=== PATIENT | male | born 1950 | race Caucasian/White ===

== ENCOUNTER 2018-03-17 07:30 | Inpatient (IN) | payer MEDICARE, OTHER ==
--- NOTE | 2018-03-07 16:10 | HP ---
HISTORY AND PHYSICAL: DATE OF ADMISSION/SURGERY: 03/17/18 DATE OF OFFICE VISIT: 03/07/18 SURGEON: Laurita Lucero MD * (DICTATED BY BEE HUFFMAN) PROCEDURE: Left total knee arthroplasty. CHIEF COMPLAINT: Left knee pain. HISTORY OF PRESENT ILLNESS: Mr. Hatch is a 67-year-old gentleman with end- stage osteoarthritis of the left knee. He has failed conservative treatment and elected to proceed with a left total knee arthroplasty. PAST MEDICAL HISTORY: High cholesterol, diabetes, sleep apnea, and melanoma. PAST SURGICAL HISTORY: Trigger finger release and left knee arthroscopy. CURRENT MEDICATIONS: Lipitor 40 mg at bedtime. ALLERGIES: No known drug allergies. FAMILY HISTORY: Coronary artery disease, colon cancer, and stroke. SOCIAL HISTORY: He is a 67-year-old gentleman, lives with his . He does not smoke, use drugs or alcohol. REVIEW OF SYSTEMS: A complete 14-point review of systems was reviewed with the patient. It is positive for diabetes, diet controlled. He denies history of DVT, PE, hepatitis, HIV, or anesthesia problems. PHYSICAL EXAMINATION GENERAL: He is well developed, well nourished, in no acute distress. VITAL SIGNS: He stands 5 feet 8 inches tall, weighs 214 pounds. His blood pressure is 122/70 and his heart rate is 64. HEENT: Normocephalic, atraumatic. NECK: Supple. No palpable lymph nodes. PULMONARY: The lungs are clear to auscultation bilaterally. CARDIO: Regular rate and rhythm. Strong S1, S2. ABDOMEN: Soft, nontender, nondistended. NEUROLOGICAL: He is alert and oriented x3. MUSCULOSKELETAL: Left lower extremity, the skin is intact. There are no open wounds or abrasions. He walked with antalgic-type gait, favoring his left knee. He has a varus deformity of his left knee with moderate effusion. Range of motion is 15 to 120 degrees of flexion. He has 2+ dorsalis pedis pulse. Intact sensation. His lower extremity muscle group strengths are intact at 5/5. ASSESSMENT AND PLAN: Mr. Hatch is a 67-year-old gentleman with end-stage osteoarthritis of the left knee. He has failed conservative treatment and elected to proceed with a left total knee arthroplasty. The surgery is scheduled for 03/17/[address] Lucero discussed the risks and benefits of the surgery at today's visit and all of his questions were answered. He will follow up with Dr. Lucero 2 weeks after the surgery. BEE HUFFMAN [id number]/[facility] #: [id number] TODD
[~2018-03-17 07:30] MED LIST: Buffered Lidocaine 0.9% SYRIN* 5 ML/SYR SYRINGE INTRADERM ONE; Dexamethasone IV* 4 MG/ML 1 ML (4 MG) IV SLOW PU ONE; Famotidine IV* 10 MG/ML 2 ML (20 mg) IV ONE; Tranexamic Acid 1,000 MG in NS 0.9% 50 ML* (outpatient use) IV SCH
[2018-03-17] MEDS ORDERED: Famotidine IV* 10 MG/ML 2 ML (20 mg) ONE (09:59)
[2018-03-17] MEDS ORDERED: ceFAZolin 2 GM PREMIX in ORs 2 GM/50 ML BAG IVPB ONE (09:59)
[2018-03-17] MEDS ORDERED: Dexamethasone IV* 4 MG/ML 1 ML (4 MG) ONE (09:59)
--- OUTSIDE RECORDS SUMMARY | 2018-03-17 10:06 | XMS REPORT | Continuity of Care Document ---
:1950 External Reference #:[id number] Author Name Reza Eden M.D. Address [address] [facility] [address] [place] [address] Care Team Providers Name Role Phone HCP/LW on file Primary Care Physician Unavailable Payers Type Date Identification Numbers Payment Provider Subscriber Effective: Policy Number: [id number] [facility] Silvio Hatch 2015 Services PayID: [id number] [address] [place] [address] Effective: 2016 Policy Number: [id number] [employer] Silvio Hatch PayID: [id number] [address] [place] [address] Advance Directives Description No Information Available Problems Date Description Provider Status Onset: 10/13/2004 Dysthymia Reza Eden M.D. Active Onset: 10/13/2004 Panic disorder without agoraphobia Reza Eden M.D. Active Onset: 10/13/2004 Family history of malignant neoplasm Reza Eden M.D. Active of gastrointestinal tract Onset: 01/12/2006 History of polyp of colon Reza Eden M.D. Active Onset: 01/12/2006 Pure hypercholesterolemia Reza Eden M.D. Active Onset: 01/12/2006 Obesity Reza Eden M.D. Active Onset: 07/21/2006 Migraine without aura, not refractory Reza Eden M.D. Active Onset: 03/03/2017 Type 2 diabetes mellitus Reza Eden M.D. Active Onset: 03/02/2016 Impaired fasting glycaemia Reza Eden M.D. 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 Allergies, Adverse Reactions, Alerts Description No Known Drug Allergies Medications Medication Date Status Form Strength Qnty SIG Indications Ordering Provider Shingrix 03/08/ Hx Suspension 50mcg/0.5 2unit administer 2 Z23 Meek, 2018 - Rec ML s doses as Reza 09/04/ Kylie dotson 2019 per cdc guidelines Meloxicam 02/17/ Active Tablets 15mg 30tab 1 tablet by Nic, 2018 s mouth daily MD Laurita Freestyle Lite 03/11/ Active Strips 100un use as Caroline Eden 2017 its directed for Reza measuring M.D. blood sugar up to 1x/day and as needed Atorvastatin 01/12/ Active Tablets 40mg 90tab 1 by mouth E78.00 Meek Calcium 2014 s every day Reza for high M.D. cholesterol Maxalt 10/13/ Active Tablets 10mg 9tabs 1 by mouth G43.009 Meek 2005 as needed Reza for M.D. migraines; may repeat after 2 hours Max 12/month Escitalopram 01/10/ Hx Tablets 5mg 45tab 1 by mouth 300.4 Meek Oxalate 2012 - s every day Reza 03/11/ for 1 month M.D. 2012 then 1/2 tablet daily for 1 month then stop it 300.01 Escitalopram 03/14/2012 - Hx Tablets 10mg 90tabs take 1 300.4 Silcoff, Oxalate 01/10/2013 tablet by Kylie Cobb mouth once daily 300.01 Atorvastatin 03/14/2012 - Hx Tablets 10mg 90tabs take 1 tablet 272.0 Silcoff, Calcium 01/12/2014 by mouth once Reza, daily for M.D. Cholesterol Lexapro 07/21/2006 - Hx Tabs 10mg 90tabs Take 1 Tablet 300.4 Silcoff, 03/14/2012 By Mouth Once Reza, Daily M.D. 300.01 Zithromax Z-Patrick 06/19/2006 - Hx Tablets 250mg 1Pack Use as 466.0 Ellis 06/24/2006 Directed Josefa Rhodesergan W/ 06/19/2006 - Hx Syrup 6.25mg;1 80z 2 TSP qid prn 466.0 Ellis Codeine 06/26/2006 0mg/5ML Cough Josefa FRAZIER Aleve 01/12/2006 - Hx Tablets 220mg 2 PO qd For Unknown 12/27/2008 Knee Pain Ibuprofen 03/20/2003 - Hx Tablets 600mg 60tabs 1 po tid klepack 06/24/2004 Clonazepam 03/20/2003 - Hx Tablets 0.5mg 60tabs 1tab 1 or 2 x 300.4 Sameer HTony 07/25/2003 qd prn for usman Shelby M.D. Lexapro 03/20/2003 - Hx Tablets 10mg 90tabs 1/2 - 1 po qd 300.4 Silcoff , 01/12/2006 to stabilize regan Cobb M.D. Lipitor 01/24/2003 - Hx Tablets 10mg 90tabs 1 qd for 272.0 Silcoff, 03/14/2012 cholesterol Kylie Cobb Aspirin 01/24/2003 - Hx Chewtabs 81mg 1 po qd To Sameer Harp 02/17/2018 Prevent Ashley Shelby M.D. Multivitamins 01/24/2003 - Hx Tablets 30tabs 1 po qd Sameer Harp 02/25/2015 Kylie Shelby Pravachol 01/24/2003 - Hx Tablets 20mg 90tabs 1 po hs to Sameer Harp 04/04/2003 lowe blood mercedes Shelby M.D. Maxalt IC DESIGN MANAGER 01/12/2003 - Hx Tablets 10mg 16tabs 1 under tongue Sameer H. 10/13/2004 as needed for lilia Shelby, august Kylie repeat in 2 hours, max 3 pills in 24 hours B12 - Hx Unknown 01/06/2012 Mystic 3 - Hx Unknown 01/10/2013 Immunizations CPT Code Status Date Vaccine Lot # [id number] Given 02/21/2018 Influenza Virus Vaccine, Quadrivalent, Split, [id number] Preservative Free 27470 Given 03/03/2017 Pneumococcal Immunization [id number] 54513 Given 03/03/2017 Influenza Vaccine Split Virus Preservative Free Im [id number] Use 11354 Given 03/02/2016 Influenza Virus Vaccine, Quadrivalent, Split, [id number] Preservative Free 16701 Given 03/02/2016 Prevnar 13 [id number] 21355 Given 02/25/2015 Influenza Virus Vaccine, Quadrivalent, Split, [id number] Preservative Free 63572 Given 01/25/2014 Influenza Virus Vaccine, Quadrivalent, Split, Preservative Free 56128 Given 01/10/2013 Zostavax [id number] 77649 Given 01/10/2013 Flu, Split Virus 3Yrs [id number] 65715 Given 01/06/2012 Flu, Split Virus 3Yrs [id number] 56689 Given 01/06/2011 Adacel or Boostrix, TDaP [id number] 90432 Given 01/06/2011 Flu, Split Virus 3Yrs [id number] 75832 Given 12/28/2007 Flu, Split Virus 3Yrs [id number] 00589 Given 10/13/2004 Td Immunization 89146 Given 01/24/2003 Flu, Split Virus 3Yrs [id number] Refused 01/06/2012 Zostavax Vital Signs Date Vital Result Comment 03/08/2018 9:04am BP Systolic 124 mmHg BP Diastolic 80 mmHg Heart Rate 56 /min reg Respiratory Rate 12 /min not laboured O2 % BldC Oximetry 95 % Body Temperature 97.7 F Height 67.50 inches 5'7.50" Weight 214.00 lb BMI (Body Mass Index) 33.0 kg/m2 03/03/2017 9:00am BP Systolic 125 mmHg BP Diastolic 80 mmHg BP Systolic Recheck 130 mmHg R arm sitting BP Diastolic Recheck 78 mmHg R arm sitting Heart Rate 72 /min reg Respiratory Rate 12 /min not laboured Height 67.5 inches 5'7.50" Weight 210.00 lb BMI (Body Mass Index) 32.4 kg/m2 03/02/2016 10:01am BP Systolic 154 mmHg BP Diastolic 70 mmHg BP Systolic Recheck 124 mmHg R arm sitting BP Diastolic Recheck 74 mmHg R arm sitting Heart Rate 70 /min reg Respiratory Rate 14 /min not laboured Height 67.5 inches 5'7.50" Weight 222.00 lb BMI (Body Mass Index) 34.3 kg/m2 02/25/2015 3:04pm BP Systolic 128 mmHg BP Diastolic 70 mmHg Heart Rate 68 /min reg Respiratory Rate 14 /min not laboured Height 67 inches 5'7" Weight 226.00 lb BMI (Body Mass Index) 35.4 kg/m2 01/12/2014 10:09am BP Systolic 118 mmHg BP Diastolic 72 mmHg Heart Rate 76 /min reg Respiratory Rate 12 /min not laboured Height 67.25 inches 5'7.25" Weight 235.00 lb BMI (Body Mass Index) 36.5 kg/m2 04/12/2013 9:42am BP Systolic 122 mmHg BP Diastolic 76 mmHg Weight 240.00 lb 01/10/2013 9:14am BP Systolic 124 mmHg BP Diastolic 78 mmHg Heart Rate 72 /min reg Respiratory Rate 12 /min not laboured Height 67.75 inches 5'7.75" Weight 233.00 lb BMI (Body Mass Index) 35.7 kg/m2 01/06/2012 2:27pm BP Systolic 134 mmHg BP Diastolic 88 mmHg BP Systolic Recheck 128 mmHg R arm sitting BP Diastolic Recheck 84 mmHg R arm sitting Heart Rate 74 /min reg Respiratory Rate 12 /min not laboured Height 67.50 inches 5'7.50" Weight 226.00 lb BMI (Body Mass Index) 34.9 kg/m2 01/06/2011 10:35am BP Systolic 100 mmHg BP Diastolic 68 mmHg Height 67.50 inches 5'7.50" Weight 220.00 lb BMI (Body Mass Index) 33.9 kg/m2 Last Menstrual Period 0 12/30/2009 9:56am BP Systolic 122 mmHg BP Diastolic 80 mmHg Heart Rate 72 /min reg Respiratory Rate 14 /min not laboured Height 68 inches 5'8" Weight 230.00 lb BMI (Body Mass Index) 35.0 kg/m2 12/28/2008 9:54am BP Systolic 108 mmHg BP Diastolic 70 mmHg Height 67.50 inches 5'7.50" Weight 223.00 lb BMI (Body Mass Index) 34.4 kg/m2 Last Menstrual Period 0 12/28/2007 2:28pm BP Systolic 124 mmHg BP Diastolic 62 mmHg Height 68 inches 5'8" Weight 230.00 lb BMI (Body Mass Index) 35.0 kg/m2 12/21/2006 8:53am BP Systolic 120 mmHg BP Diastolic 84 mmHg Height 68 inches 5'8" Weight 240.00 lb BMI (Body Mass Index) 36.5 kg/m2 09/20/2006 3:56pm BP Systolic 124 mmHg BP Diastolic 76 mmHg Height 68.5 inches 5'8.50" Weight 239.00 lb BMI (Body Mass Index) 35.8 kg/m2 07/21/2006 11:12am BP Systolic 130 mmHg BP Diastolic 80 mmHg Height 68.5 inches 5'8.50" Weight 240.00 lb BMI (Body Mass Index) 36.0 kg/m2 06/19/2006 10:45am BP Systolic 124 mmHg BP Diastolic 76 mmHg Body Temperature 98.3 F Height 68.5 inches 5'8.50" Weight 245.00 lb BMI (Body Mass Index) 36.7 kg/m2 01/12/2006 3:42pm BP Systolic 130 mmHg BP Diastolic 84 mmHg Height 68.5 inches 5'8.50" Weight 240.00 lb BMI (Body Mass Index) 36.0 kg/m2 10/13/2004 10:07am BP Systolic 126 mmHg BP Diastolic 76 mmHg Height 68.5 inches 5'8.50" Weight 233.00 lb BMI (Body Mass Index) 34.9 kg/m2 06/24/2004 4:37pm BP Systolic 120 mmHg BP Diastolic 80 mmHg Height 67.9 inches 5'7.90" Weight 235.00 lb BMI (Body Mass Index) 35.8 kg/m2 10/25/2003 8:50am Height 67.9 inches 5'7.90" Weight 224.00 lb BMI (Body Mass Index) 34.2 kg/m2 07/25/2003 2:44pm BP Systolic 118 mmHg BP Diastolic 78 mmHg Weight 235.00 lb 03/20/2003 4:55pm BP Systolic 118 mmHg BP Diastolic 70 mmHg 01/24/2003 2:17pm Weight 221.00 lb Last Menstrual Period 0 Results Test Date Facility Test Result H/L Range Note Laboratory test 03/08/2018 In House Hemoglobin A1c 6.8 finding CBC Auto Diff 03/07/2018 [facility] White Blood 5.9 10^3/uL N 3.5- 10.8 1 [phone] Count Red Blood Count 5.68 10^6/uL High 4.00-5.40 Hemoglobin 15.4 g/dL N 14.0-18.0 Hematocrit 46 % N 42-52 Mean Corpuscular Volume 81 fL N 80-94 Mean Corpuscular Hemoglobin 27 pg N 27-31 Mean Corpuscular HGB Conc 33 g/dL N 31-36 Red Cell Distribution Width 16 % High 10.5-15 Platelet Count 160 10^3/uL N 150-450 Mean Platelet Volume 7.9 fL N 7.4-10.4 Abs Neutrophils 3.8 10^3/uL N 1.5-7.7 Abs Lymphocytes 1.5 10^3/uL N 1.0-4.8 Abs Monocytes 0.4 10^3/uL N 0-0.8 Abs Eosinophils 0.2 10^3/uL N 0-0.6 Abs Basophils 0 10^3/uL N 0-0.2 Abs Nucleated RBC 0 10^3/uL Granulocyte % 64.5 % Lymphocyte % 24.8 % Monocyte % 7.1 % Eosinophil % 3.0 % Basophil % 0.6 % Nucleated Red Blood Cells % 0.1 Urinalysis Profile 03/07/2018 [facility] Urine Color Yellow [phone] Urine Appearance Clear Urine Specific [place] 1.027 N 1.010-1.030 Urine pH 5.0 N 5-9 Urine Urobilinogen Negative Negative Urine Ketones Negative Negative Urine Protein Negative Negative Urine Leukocytes Negative Negative Urine Blood Negative Negative Urine Nitrite Negative Negative Urine Bilirubin Negative Negative Urine Glucose Negative Negative Inr/Protime 03/07/2018 [facility] Inr 0.98 N 0.77-1.02 [phone] Laboratory test 03/07/2018 [facility] Partial 32.2 seconds N 26.0- 36.3 2 finding [phone] Thrombo Time PTT Urine Culture And 03/07/2018 [facility] Urine Culture SEE RESULT 3 Sensitivities [phone] BELOW Type & Screen 03/07/2018 [facility] Patient Blood A Positive [phone] Type Antibody Screen NEGATIVE Comp Metabolic Panel 03/07/2018 [facility] Sodium 140 mmol/L N 135- 145 [phone] Potassium 4.3 mmol/L N 3.5-5.0 Chloride 108 mmol/L N 101-111 Co2 Carbon Dioxide 25 mmol/L N 22-32 Anion Gap 7 mmol/L N 2-11 Glucose 137 mg/dL High 70-100 Blood Urea Nitrogen 22 mg/dL N 6-24 Creatinine 0.69 mg/dL N 0.67-1.17 BUN/Creatinine Ratio 31.9 High 8-20 Calcium 9.4 mg/dL N 8.6-10.3 Total Protein 6.5 g/dL N 6.4-8.9 Albumin 4.2 g/dL N 3.2-5.2 Globulin 2.3 g/dL N 2-4 Albumin/Globulin Ratio 1.8 N 1-3 Total Bilirubin 0.80 mg/dL N 0.2-1.0 Alkaline Phosphatase 82 U/L N 34-104 Alt 23 U/L N 7-52 Ast 16 U/L N 13-39 Egfr Non- 114.4 >60 Egfr 138.4 >60 4 Basic Metabolic Panel 03/10/2017 [facility] Sodium 138 mmol/L N 133- 145 [phone] Potassium 4.3 mmol/L N 3.5-5.0 Chloride 106 mmol/L N 101-111 Co2 Carbon Dioxide 26 mmol/L N 22-32 Anion Gap 6 mmol/L N 2-11 Glucose 94 mg/dL N 70-100 Blood Urea Nitrogen 12 mg/dL N 6-24 Creatinine 0.67 mg/dL N 0.67-1.17 BUN/Creatinine Ratio 17.9 N 8-20 Calcium 8.8 mg/dL N 8.6-10.3 Egfr Non- 118.7 >60 Egfr 152.6 >60 5 Urine Microalbumin 03/10/2017 [facility] Ur Microalbumin < 15.0 mg/L Random [phone] (mg/L) Urine Creatinine 184.24 mg/dL Urine Microalbumin/Creatinine TNP ug/mg <31 6 Lipid Profile (Trig/Chol/HDL) 03/10/2017 [facility] Triglycerides 59 mg /dL 7 [phone] Cholesterol 134 mg/dL 8 HDL Cholesterol 53.3 mg/dL 9 LDL Cholesterol 69 mg/dL 10 Laboratory test 03/10/2017 [facility] Alt 30 U/L N 7-52 11 finding [phone] Laboratory test 03/03/2017 In House Hemoglobin A1c 6.5 finding Laboratory test 06/05/2016 [facility] Hemoglobin A1c 6.7 % High Less than 12 finding [phone] (Glyco HGB) 6.0 Laboratory test 03/02/2016 In House Hemoglobin A1c 7.0 finding Urine Micro 03/02/2016 In House Ua WBC - 13 Inhouse Ua RBC - Ua Casts - Ua Epi - Ua Other - Ua Glucose - Ua Bilirubin - Ua Ketones - Ua Specific [place] 1.015 Ua Blood - Ua PH 5.0 Ua Protein - Ua Urobilinogen - Ua Nitrite - Ua Leukocytes - Laboratory test finding 02/14/2016 [facility] Glucose 100 mg/dL N 70- 100 [phone] Alt (SGPT) 19 U/L N 7-52 Lipid Profile (Trig/Chol/HDL) 02/14/2016 [facility] Triglycerides 55 mg /dL N 14 [phone] Cholesterol 121 mg/dL N 15 HDL Cholesterol 45.2 mg/dL N 16 LDL Cholesterol 65 mg/dL N 17 Laboratory test 03/25/2015 [facility] Surgical Pathology SEE RESULT 18 finding [phone] BELOW Lipid Profile 03/11/2015 [facility] Triglycerides 72 mg/dL N 19 (Trig/Chol/HDL) [phone] Cholesterol 105 mg/dL N 20 HDL Cholesterol 40.8 mg/dL N 21 LDL Cholesterol 50 mg/dL N 22 Laboratory test finding 03/11/2015 [facility] Alt (SGPT) 20 U/L N 7- 52 23 [phone] Glucose 116 mg/dL High 70-100 24 Lipid Profile 03/19/2014 [facility] Triglycerides 82 mg/dL N 25, 26 (Trig/Chol/HDL) [phone] Cholesterol 109 mg/dL N 27 HDL Cholesterol 42.1 mg/dL N 28 LDL Cholesterol 51 mg/dL N 29 Laboratory test finding 03/19/2014 [facility] Alt 23 U/L N 7-52 30 [phone] Lipid Profile 12/30/2012 [facility] Triglycerides 83 mg/dL 40-200 (Trig/Chol/HDL) [phone] Cholesterol 150 mg/dL Less than 200 HDL Cholesterol 38 mg/dL Low 40-60 31 Cholesterol/HDL Ratio 4.0 Average 1-4.44 LDL Cholesterol 95.4 Less Than 100 32 Laboratory test finding 12/30/2012 [facility] Alt 21 U/L 14-54 33 [phone] Lipid Profile 12/17/2011 [facility] Triglyceride 49 mg/dL 40-200 (Trig/Chol/HDL) [phone] Cholesterol 129 mg/dL Less Than 200 34 High Density Lipoprotein 38 mg/dL Low 40-60 35 Cholesterol/HDL Ratio 3.39 AVERAGE 1-4.97 Low Density Lipoprotein 81 mg/dL Less Than 100 36 Laboratory test finding 12/17/2011 [facility] Alt (SGPT) 29 U/L 17- 63 [phone] Lipid Profile 12/19/2010 [facility] Triglyceride 63 mg/dL 40-200 (Trig/Chol/HDL) [phone] Cholesterol 136 mg/dL Less Than 200 37 High Density Lipoprotein 40 mg/dL 40-60 38 Cholesterol/HDL Ratio 3.40 AVERAGE 1-4.97 Low Density Lipoprotein 83 mg/dL Less Than 100 39 Laboratory test 12/19/2010 [facility] Alt (SGPT) 22 U/L 17-63 finding [phone] CBC With Electronic 01/14/2010 [facility] White Blood 6.8 CUMM 4.8- 10.8 Diff [phone] Count Red Cell Count 5.61 CUMM 4.6-6.2 Hemoglobin 15.5 g/dL 14.0-18.0 Hematocrit 45 % 42-52 Mean Corpuscular Volume 80 um3 80-94 Mean Corpuscular Hemoglob 28 pg 27-31 Mean Corpuscular HGB Cone 35 g/dL 32-36 Redcell Distribution WDTH 15 % 10.5-15 Platelet Count 205 CUMM 150-450 Mean Platelet Volume 7.0 um3 Low 7.4-10.4 Gran % 61.9 % 38-83 Lymph % 28.3 % 25-47 Mononuclear % 6.8 % 1-9 Eosinophil % 2.5 % 0-6 Basophil % 0.5 % 0-2 Abs Lymphs 1.9 1.0-4.8 Abs Mononuclear 0.5 0-0.8 Absolute Neutrophil Count 4.2 1.5-7.7 Abs Eosinophils 0.2 0-0.6 Abs Basophils 0 0-0.2 Laboratory test finding 01/14/2010 [facility] TSH 1.47 MIU/ML 0.34- 5.60 [phone] Urine Micro Inhouse 12/30/2009 In House Ua WBC - Ua RBC - Ua Casts - Ua Epi - Ua Other - Ua Glucose - Ua Bilirubin - Ua Ketones - Ua Specific [place] 1.025 Ua Blood - Ua PH 5.0 Ua Protein - Ua Urobilinogen - Ua Nitrite - Ua Leukocytes - Laboratory test finding 12/03/2009 [facility] Alt (SGPT) 26 U/L 05- 39 [phone] Lipid Profile 12/03/2009 [facility] Triglyceride 48 mg/dL 40-200 (Trig/Chol/HDL) [phone] Cholesterol 137 mg/dL Less Than 200 40 High Density Lipoprotein 33 mg/dL Low 40-60 41 Cholesterol/HDL Ratio 4.15 AVERAGE 1-4.97 Low Density Lipoprotein 94 mg/dL Less Than 100 42 Lipid Profile 12/06/2008 [facility] Triglyceride 53 mg/dL 40-200 (Trig/Chol/HDL) [phone] Cholesterol 137 mg/dL Less Than 200 43 High Density Lipoprotein 37 mg/dL Low 40-60 44 Cholesterol/HDL Ratio 3.70 AVERAGE 1-4.97 Low Density Lipoprotein 89 mg/dL Less Than 100 45 Laboratory test finding 12/06/2008 [facility] Alt (SGPT) 23 U/L 17- 59 [phone] Laboratory test finding 12/01/2007 [facility] Alt (SGPT) 23 U/L 17- 68 [phone] Lipid Profile 12/01/2007 [facility] Triglyceride 90 mg/dL 40-200 (Trig/Chol/HDL) [phone] Cholesterol 148 mg/dL Less Than 200 46 High Density Lipoprotein 37 mg/dL Low 40-60 47 Cholesterol/HDL Ratio 4.00 AVERAGE 1-4.97 Low Density Lipoprotein 93 mg/dL Less Than 100 48 Lipid Profile 12/12/2006 [facility] Cholesterol/HDL 4.25 1-4.97 (Trig/Chol/HDL) [phone] Ratio AVERAGE Cholesterol 136 mg/dL Less Than 200 49 Triglyceride 90 mg/dL 40-200 High Density Lipoprotein 32 mg/dL Low 40-60 50 Low Density Lipoprotein 86 mg/dL Less Than 100 51 Laboratory test finding 12/12/2006 [facility] Alt (SGPT) 26 U/L 17- 55 [phone] Laboratory test finding 12/04/2005 [facility] Alt (SGPT) 28 U/L 17- 63 52 [phone] Glucose 87 mg/dL 70-105 Lipid Profile 12/04/2005 [facility] Cholesterol 160 mg/dL Less Than 53 (Trig/Chol/HDL) [phone] 200 Triglyceride 106 mg/dL 40-200 High Density Lipoprotein 43 mg/dL 40-60 Low Density Lipoprotein 96 mg/dL Less Than 100 54 Cholesterol/HDL Ratio 3.72 AVERAGE 1-4.97 Laboratory test finding 10/07/2004 [facility] Alt (SGPT) 28 U/L 17- 63 [phone] Glucose 91 mg/dL 70-105 Lipid Profile 10/07/2004 [facility] Cholesterol 157 mg/dL Less Than 55 (Trig/Chol/HDL) [phone] 200 Triglyceride 110 mg/dL 40-200 High Density Lipoprotein 39 mg/dL Low 40-60 56 Low Density Lipoprotein 96 mg/dL Less Than 100 57 Cholesterol/HDL Ratio 4.03 AVERAGE 1-4.97 Laboratory test finding 10/25/2003 [facility] PSA Screening 2.2 NG/ML 0-4 58 [phone] TSH 1.22 MIU/ML 0.34-5.60 Comp Metabolic Panel 10/25/2003 [facility] Anion Gap 6.0 mmol/L 2- 11 59 [phone] Albumin/Globulin Ratio 1.3 1-3 Albumin 3.8 GM/DL 3.6-5.4 Alkaline Phosphatase 91 U/L 39-117 Alt (SGPT) 36 U/L 17-63 Ast (Sgot) 21 U/L 12-42 BUN 13 mg/dL 6-24 Calcium 9.6 mg/dL 8.7-10.2 Chloride 106 mmol/L 101-111 Co2 (Carbon Dioxide) 28.0 mmol/L 22-32 Creatinine 0.9 mg/dL 0.5-1.4 Globulin 3.0 GM/DL 2-4 Glucose 87 mg/dL 70-105 Potassium 4.7 mmol/L 3.5-5.0 Sodium 140 mmol/L 135-145 Bilirubin Total 0.9 mg/dL 0.4-1.5 Total Protein 6.8 GM/DL 6.2-8.1 BUN/Creatinine Ratio 14.4 8-20 Lipid Profile 10/25/2003 [facility] Cholesterol 142 mg/dL Less Than 60 (Trig/Chol/HDL) [phone] 200 Triglyceride 61 mg/dL 40-200 High Density Lipoprotein 38 mg/dL Low 40-60 61 Low Density Lipoprotein 92 mg/dL Less Than 100 62 Cholesterol/HDL Ratio 3.74 AVERAGE 1-4.97 CBC With Electronic 10/25/2003 [facility] White Blood 5.7 CUMM 4.8- 10.8 Diff [phone] Count Abs Basophils 0 0-0.2 Abs Eosinophils 0.1 0-0.6 Abs Grans 3.7 1.5-7.7 Abs Lymphs 1.4 1.0-4.8 Abs Mononuclear 0.4 0-0.8 Basophil % 0.8 % 0-2 Hematocrit 47 % 42-52 Hemoglobin 16.1 g/dL 14.0-18.0 Eosinophil % 2.4 % 0-6 Gran % 65.9 % 38-83 Lymph % 24.1 % 20-45 Mean Corpuscular HGB Cone 34 g/dL 32-36 Mean Corpuscular Hemoglob 28 pg 27-31 Mean Corpuscular Volume 80 um3 80-94 Mean Platelet Volume 8.3 um3 7.4-10.4 Mononuclear % 6.8 % 1-9 Platelet Count 196 CUMM 150-450 Red Cell Count 5.85 CUMM 4.6-6.2 Redcell Distribution WDTH 15 % 10.5-15 1 03/17 2 03/17 3 SEE RESULT BELOW Name: SILVIO HATCH : [address]: Laurita Lucero MD Acct: [id number] Unit: [id number] AGE: 67 Location: PAT Re03/07/18 SEX: M Status: REG REF SPEC: [id number] MARKEL: 03/07/18-[address]: Laurita Lucero MD REQ: [id number] RECD: 03/07/18 STATUS: RIA MORRISON DR: Reza Eden MD _ SOURCE: URINE SPDESC: ORDERED: Urine Culture COMMENTS: 03/17 QUERIES: Urine Source: Clean Catch Procedure Result Reported Site Urine Culture Final 03/08/18- 1300 ML No Growth (<1,000 CFU/mL) * ML - Main Lab . END OF REPORT DEPARTMENT OF PATHOLOGY, [address] [place] [address] Tito Gutiérrez M.D. Director [facility] # [id number] 4 Because ethnic data is not always readily available, this report includes an eGFR for both -Americans and non- Americans. The National Kidney Disease Education Program (NKDEP) does not endorse the use of the MDRD equation for patients that are not between the ages of 18 and 70, are , have extremes of body size, muscle mass, or nutritional status, or are non- or non-. According to the National Kidney Foundation, irrespective of diagnosis, the stage of the disease is based on the level of kidney function: Stage Description GFR(mL/min/1.73 m(2)) 1 Kidney damage with normal or decreased GFR 90 2 Kidney damage with mild decrease in GFR 60-89 3 Moderate decrease in GFR 30-59 4 Severe decrease in GFR 15-29 5 Kidney failure <15 (or dialysis) 5 Because ethnic data is not always readily available, this report includes an eGFR for both -Americans and non- Americans. The National Kidney Disease Education Program (NKDEP) does not endorse the use of the MDRD equation for patients that are not between the ages of 18 and 70, are , have extremes of body size, muscle mass, or nutritional status, or are non- or non-. According to the National Kidney Foundation, irrespective of diagnosis, the stage of the disease is based on the level of kidney function: Stage Description GFR(mL/min/1.73 m(2)) 1 Kidney damage with normal or decreased GFR 90 2 Kidney damage with mild decrease in GFR 60-89 3 Moderate decrease in GFR 30-59 4 Severe decrease in GFR 15-29 5 Kidney failure <15 (or dialysis) 6 Unable to calculate due to low microalbumin 7 Desirable: <150 Borderline High: 150-199 High: 200-499 Very High: >500 8 Desirable: <200 Borderline High: 200-239 High: >239 9 Low: <40 Desirable: 40-60 High: >60 10 Desirable: <100 Near Optimal: 100-129 Borderline High: 130-159 High: 160-189 Very High: >189 11 FASTING 12 HOUR 12 Therapeutic target for the treatment of diabetes Mellitus patients is <7% HBA1C, and in selective patients <6.0%.Please refer to [employer] Diabetic care guidelines for further information. 13 void, clear, dark yellow 14 Desirable <150 Borderline high 150-199 High 200-499 Very High >500 15 Desirable <200 Borderline high 200-239 High >239 16 Low <40 Desirable: 40-60 High: >60 17 Desirable: <100 mg/dL Near Optimal: 100-129 mg/dL Borderline High: 130-159 mg/dL High: 160-189 mg/dL Very High: >189 mg/dL 18 SEE RESULT BELOW Name: SILVIO HATCH : [address]: Shantanu Hayes MD Acct: [id number] Unit: [id number] AGE: 64 Location: [facility] Re03/25/15 SEX: M Status: REG REF SPEC: [id number] MARKEL: 03/25/15- SUBM DR: Shantanu Hayes MD REQ: [id number] RECD: 03/25/151609 STATUS: DARY MORRISON DR: Reza Eden MD _ ORDERED: LEVEL IV FINAL DIAGNOSIS Colon, mid transverse, biopsy: -- Tubular adenoma. -- No high grade dysplasia or malignancy. CLINICAL HISTORY Positive family history; usual bowel habit - every day with no blood POST-OPERATIVE DIAGNOSIS Colonoscopy to cecum with ease, poor to fair prep - terminal ileum normal. Diverticulosis, transverse polyps; family history; 5 years GROSS DESCRIPTION The specimen is received in formalin labeled, Biopsy Mid Transverse Colon Polyp, and consists of a 0.7 x 0.4 x 0.2 cm aggregate of ron irregular soft tissue fragments, which is submitted entirely in one cassette. Signed (signature on file) Lata Atkins MD 1153 END OF REPORT * ML=Testing performed at Main Lab DEPARTMENT OF PATHOLOGY, [address] [place] [address] Tito Gutiérrez M.D. Director [facility] # [id number] 19 Desirable <150 Borderline high 150-199 High 200-499 Very High >500 20 Desirable <200 Borderline high 200-239 High >239 21 Low <40 Desirable: 40-60 High: >60 22 Desirable: <100 mg/dL Near Optimal: 100-129 mg/dL Borderline High: 130-159 mg/dL High: 160-189 mg/dL Very High: >189 mg/dL 23 FASTING 24 FASTING 25 FASTING 12 HOUR 26 Desirable <150 Borderline high 150-199 High 200-499 Very High >500 27 Desirable <200 Borderline high 200-239 High >239 28 Low <40 Desirable: 40-60 High: >60 29 Desirable <100 Near Optimal 100-129 Borderline high 130-159 High 160-189 Very High >189 30 FASTING 12 HOUR 31 HDL Interpretation: Undesirable: High Risk: Less than 40 mg/dL Desirable: Low Risk: Greater than 60 mg/dL 32 LDL Interpretation: Low Risk Optimal Level: LDL Less than 100 mg/dL Near or Above Optimal: LDL 100-129 mg/dL Borderline High Risk: LDL 130-159 mg/dL High Risk: LDL 160-189 mg/dL Very High Risk: LDL Greater than 189 mg/dL 33 FASTING 12 HOUR 34 CHOLESTEROL INTERPRETATION: Desirable: Less than 200 MG/DL Borderline-High Risk: 200-239 MG/DL High-Risk: 240 MG/DL and over 35 HDL INTERPRETATION: Undesirable: High Risk: Less than 40 MG/DL Desirable: Low Risk: Greater than 60 MG/DL 36 LDL INTERPRETATION: Low Risk Optimal Level: LDL Less than 100 MG/DL Near or Above Optimal: LDL 100-129 MG/DL Borderline High Risk: LDL 130-159 MG/DL High Risk: LDL 160-189 MG/DL Very High Risk: LDL Greater than 189 MG/DL 37 CHOLESTEROL INTERPRETATION: Desirable: Less than 200 MG/DL Borderline-High Risk: 200-239 MG/DL High-Risk: 240 MG/DL and over 38 HDL INTERPRETATION: Undesirable: High Risk: Less than 40 MG/DL Desirable: Low Risk: Greater than 60 MG/DL 39 LDL INTERPRETATION: Low Risk Optimal Level: LDL Less than 100 MG/DL Near or Above Optimal: LDL 100-129 MG/DL Borderline High Risk: LDL 130-159 MG/DL High Risk: LDL 160-189 MG/DL Very High Risk: LDL Greater than 189 MG/DL 40 CHOLESTEROL INTERPRETATION: Desirable: Less than 200 MG/DL Borderline-High Risk: 200-239 MG/DL High-Risk: 240 MG/DL and over 41 HDL INTERPRETATION: Undesirable: High Risk: Less than 40 MG/DL Desirable: Low Risk: Greater than 60 MG/DL 42 LDL INTERPRETATION: Low Risk Optimal Level: LDL Less than 100 MG/DL Near or Above Optimal: LDL 100-129 MG/DL Borderline High Risk: LDL 130-159 MG/DL High Risk: LDL 160-189 MG/DL Very High Risk: LDL Greater than 189 MG/DL 43 CHOLESTEROL INTERPRETATION: Desirable: Less than 200 MG/DL Borderline-High Risk: 200-239 MG/DL High-Risk: 240 MG/DL and over 44 HDL INTERPRETATION: Undesirable: High Risk: Less than 40 MG/DL Desirable: Low Risk: Greater than 60 MG/DL 45 LDL INTERPRETATION: Low Risk Optimal Level: LDL Less than 100 MG/DL Near or Above Optimal: LDL 100-129 MG/DL Borderline High Risk: LDL 130-159 MG/DL High Risk: LDL 160-189 MG/DL Very High Risk: LDL Greater than 189 MG/DL 46 CHOLESTEROL INTERPRETATION: Desirable: Less than 200 MG/DL Borderline-High Risk: 200-239 MG/DL High-Risk: 240 MG/DL and over 47 HDL INTERPRETATION: Undesirable: High Risk: Less than 40 MG/DL Desirable: Low Risk: Greater than 60 MG/DL 48 LDL INTERPRETATION: Low Risk Optimal Level: LDL Less than 100 MG/DL Near or Above Optimal: LDL 100-129 MG/DL Borderline High Risk: LDL 130-159 MG/DL High Risk: LDL 160-189 MG/DL Very High Risk: LDL Greater than 189 MG/DL 49 Classification: Desirable . 50 Classification: Low . 51 CALCULATED LDL APPROXIMATES THE VALUE OF A DIRECT LDL MEASUREMENT. Classification: Optimal Level . 52 FASTING 53 Classification: Desirable . 54 CALCULATED LDL APPROXIMATES THE VALUE OF A DIRECT LDL MEASUREMENT. Classification: Optimal Level . 55 Classification: Desirable . 56 Classification: Low . 57 CALCULATED LDL APPROXIMATES THE VALUE OF A DIRECT LDL MEASUREMENT. Classification: Optimal Level . 58 * SERUM LEVELS OF PSA MEASURED USING THE ROCIO Fluid-1 ACCESS HYBRITECH IMMUNOASSAY SHOULD NOT BE INTERPRETED ABSOLUTE EVIDENCE OF THE PRESENCE OR ABSENCE OF DISEASE. THE PSA VALUE SHOULD BE USED IN CONJUNCTION WITH OTHER PERTINENT CLINICAL DIAGNOSTIC PROCEDURES. 59 Anion gap measurement may be of limited value in the presence of any alkalosis, especially in a combined acid base disorder. . 60 Classification: Desirable . 61 Classification: Low . 62 CALCULATED LDL APPROXIMATES THE VALUE OF A DIRECT LDL MEASUREMENT. Classification: Optimal Level . Procedures Date Code Description Status 03/08/2018 602578048 Diabetic Foot Exam Completed 04/01/2017 311560030 Diabetic Retinal Eye Exam Completed 03/05/2015 [id number] Colonoscopy Completed Encounters Type Date Location Provider Dx Diagnosis Office Visit 03/08/2018 Main Office Reza Eden, Z01.818 Encounter for other 8:55a M.D. preprocedural examination Z00.00 Encntr for general adult medical exam w/o abnormal findings E11.9 Type 2 diabetes mellitus without complications M25.562 Pain in left knee M17.0 Bilateral primary osteoarthritis of knee E78.00 Pure hypercholesterolemia, unspecified Z23 Encounter for immunization Office Visit 02/25/2015 2:00p Main Office Reza Eden, F41.0 Panic disorder M.D. without agoraphobia Z23 Encounter for immunization Z00.00 Encntr for general adult medical exam w/o abnormal findings Z41.8 Encntr for oth proc for purpose oth than remedy [facility] Office Visit 01/12/2014 9:45a Main Office Reza Eden, V70.0 Examination General M.D. Medical Routine AT Health Care Facility 272.0 Hypercholesterolemia Pure 346.10 Migraine Common W/O Intractable W/O Status Migrainosus 786.2 Cough Office Visit 04/12/2013 9:30a Main Office Reza Eden, 300.01 Panic Disorder W/O M.D. Agoraphobia 300.4 Dysthymic Disorder Office Visit 01/10/2013 8:55a Main Office Reza Eden, V70.0 Examination General M.D. Medical Routine AT Health Care Facility 272.0 Hypercholesterolemia Pure 346.10 Migraine Common W/O Intractable W/O Status Migrainosus 300.01 Panic Disorder W/O Agoraphobia 300.4 Dysthymic Disorder V04.81 Need For Prophylactic Vaccination & Inoculation/Influenza V05.8 Single Disease Spec Other Vaccination & Inoculation V07.2 Prophylactic Immunotherapy Office Visit 01/06/2012 2:00p Main Office Reza Eden, V70.0 Examination General M.D. Medical Routine AT Health Care Facility 272.0 Hypercholesterolemia Pure 346.10 Migraine Common W/O Intractable W/O Status Migrainosus 300.01 Panic Disorder W/O Agoraphobia 300.4 Dysthymic Disorder V76.44 Screening For Malig Cristóbal Prostate V65.49 Counseling Other Spec V04.81 Need For Prophylactic Vaccination & Inoculation/Influenza V07.2 Prophylactic Immunotherapy Office 01/06/2011 Main [place], V06.1 Abypoavfrh-Vplyunt-Gjotkugn Visit 10:30a Office Kylie Cobb Combined (DTaP) 300.4 Dysthymic Disorder 300.01 Panic Disorder W/O Agoraphobia 346.10 Migraine Common W/O Intractable W/O Status Migrainosus 272.0 Hypercholesterolemia Pure 727.03 Trigger Finger Acquired 719.44 Pain Joint Hand V70.0 Examination General Medical Routine AT Health Care Facility V04.81 Need For Prophylactic Vaccination & Inoculation/Influenza Office Visit 12/30/2009 9:45a Main Office Reza Eden, 300.4 Dysthymic Disorder Tanya.DTony 300.01 Panic Disorder W/O Agoraphobia 346.10 Migraine Common W/O Intractable W/O Status Migrainosus 272.0 Hypercholesterolemia Pure V12.72 History Personal Colonic Polyps 780.79 Malaise And Fatigue Other V70.0 Examination General Medical Routine AT Health Care Facility Office Visit 12/28/2008 9:45a Main Office Reza Eden, V70.0 Examination General M.D. Medical Routine AT Health Care Facility 300.01 Panic Disorder W/O Agoraphobia 300.4 Dysthymic Disorder 272.0 Hypercholesterolemia Pure 346.10 Migraine Common W/O Intractable W/O Status Migrainosus 719.46 Pain Joint Lower Leg Office Visit 12/28/2007 2:00p Main Office Reza Eden, V70.0 Examination General M.D. Medical Routine AT Health Care Facility 300.01 Panic Disorder W/O Agoraphobia 300.4 Dysthymic Disorder 272.0 Hypercholesterolemia Pure 346.10 Migraine Common W/O Intractable W/O Status Migrainosus V04.81 Need For Prophylactic Vaccination & Inoculation/Influenza V07.2 Prophylactic Immunotherapy Office Visit 12/21/2006 8:55a Main Office Reza Eden, V70.0 Examination General M.D. Medical Routine AT Health Care Facility 272.0 Hypercholesterolemia Pure 300.01 Panic Disorder W/O Agoraphobia 346.10 Migraine Common W/O Intractable W/O Status Migrainosus V12.72 History Personal Colonic Polyps 278.00 Obesity Unspec Office Visit 09/20/2006 3:00p Main Office Reza Eden, 300.4 Dysthymic Disorder M.DTony 300.01 Panic Disorder W/O Agoraphobia Office Visit 07/21/2006 10:45a Main Office Reza Eden, 300.4 Dysthymic Disorder M.D. 300.01 Panic Disorder W/O Agoraphobia 346.10 Migraine Common W/O Intractable W/O Status Migrainosus Office Visit 06/19/2006 10:30a Main Office Josefa Corarl MD 466.0 Bronchitis Acute Office Visit 01/12/2006 3:30p Main Office Reza Eden, V70.0 Examination General M.D. Medical Routine AT Health Care Facility V12.72 History Personal Colonic Polyps 272.0 Hypercholesterolemia Pure 278.00 Obesity Unspec Office Visit 10/13/2004 9:45a Main Office Reza Eden, 300.4 Dysthymic Disorder M.D. 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 300.01 Panic Disorder W/O Agoraphobia V76.51 Special Screening For Malignant Neoplasms Colon 272.0 Hypercholesterolemia Pure V76.44 Screening For Malig Cristóbal Prostate Office Visit 10/25/2003 9:00a Main Office Sameer Shelby, 300.02 Anxiety Disorder M.D. Generalized 272.0 Hypercholesterolemia Pure 346.10 Migraine Common W/O Intractable W/O Status Migrainosus 278.01 Obesity Morbid Office Visit 07/25/2003 2:30p Main Office Sameer Shelby, 300.02 Anxiety Disorder M.D. Generalized 272.0 Hypercholesterolemia Pure 346.10 Migraine Common W/O Intractable W/O Status Migrainosus 278.01 Obesity Morbid 401.1 Hypertension Benign V76.51 Special Screening For Malignant Neoplasms Colon Office Visit 04/17/2003 4:00p Main Office Sameer Shelby, 300.02 Anxiety Disorder M.D. 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 Intractable W/O Status Migrainosus 278.01 Obesity Morbid V04.8 Need For Vaccination & Inoculation Other Viral Diseases Office Visit 11/21/2002 2:30p Main Office Reza Eden, 278.01 Obesity Morbid M.D. Plan of Treatment Future Appointment(s):03/14/2019 8:55 am - Reza Eden M.D. at Main [facility]0503/08/2018 - Reza Eden M.D.Z01.818 Encounter for other preprocedural examinationComments:~B_Pt is medically stable and w/o overt signs or symptoms concerning for coronary disease. He is active and able to exert beyong 4 METs w/o any cardiac or respiratory symptoms. Pt may proceed with the planned surgery without need for further cardiac testing. Pt is at average risk for perioperative complications.~b_Z00.00 Encounter for general adult medical examination without abnoE11.9 Type 2 diabetes mellitus without complicationsComments:Remains lifestyle controlled w/ A1c 6.8% today.Follow up: RTO 1yr DMHM w/ A1c. Stop in for fasting bloodwork the week prior.M25.562 Pain in left kneeM17.0 Bilateral primary osteoarthritis of kneeE78.00 Pure hypercholesterolemia, [id number] Encounter for immunizationNew Medication: Shingrix 50 mcg/0.5ML - administer 2 doses as directed, per cdc guidelinesComments:Counseled re Shingrix, Rx provided.
--- OUTSIDE RECORDS SUMMARY | 2018-03-17 10:07 | XMS REPORT | Continuity of Care Document ---
:1950 External Reference #:[id number] Author Name LonnieAnselmo jarrett Care Team Providers Name Role Phone Reza Eden MD Primary Care Physician Unavailable Payers Type Date Identification Numbers Payment Provider Subscriber Policy Number: [id number] Medicare Silvio Hatch PayID: [id number] [address] [place] [address] Policy Number: [id number] [facility] Silvio Nabil Holden Group Number: [id number] [address] PayID: [id number] [place] [address] Expires: 2018 Policy Number: [id number] Medicare Silvio Hatch PayID: [id number] [address] [place] [address] Advance Directives Description No Information Available Problems Date Description Provider Status Onset: 03/06/2014 Obstructive sleep apnea of adult Cha Chappell DNP, RN, Active [employer]ING E[employer]IENCY COURSE DIRECTOR-BC Onset: 09/27/2017 Body mass index 30+ - obesity Cha Chappell DNP, RN, Active READING EFFICIENCY COURSE DIRECTOR-BC Onset: 01/28/2018 Localized, primary osteoarthritis Laurita Lucero M.D. Active Family History Date Family Member(s) Problem(s) Comments Father Colon Cancer Father Mother of old age Social History Type Date Description Comments Sex Unknown Marital Status Lives With Occupation Retired Tobacco Use Start: Unknown Never Smoked Cigarettes ETOH Use Rarely consumes alcohol Tobacco Use Start: Unknown Patient has never smoked Recreational Drug Use Denies Drug Use Tobacco Use Start: Unknown Secondhand smoke exposure As a child Smoking Status Reviewed: 03/07/18 Secondhand smoke exposure As a child Exercise Type/Frequency Exercises regularly Allergies, Adverse Reactions, Alerts Description No Known Drug Allergies Medications Medication Date Status Form Strength Qnty SIG Indications Ordering Provider Meloxicam 01/29/20 Active Tablets 15mg 30tabs 1 by mouth M25.561 Laurita 18 every day Kylie Lucero Lipitor Active Tablets 40mg 90tabs 1 by mouth Unknown 00 at bedtime Aspirin Ec Hx Tablets DR 81mg 100tabs 1 by mouth Unknown 00 - every day 03/06/20 18 Medications Administered in Office Medication Date Status Form Strength Qnty SIG Indications Ordering Provider Depomedrol Administered Injection Laurita 40MG 018 Kylie Lucero Immunizations Description No Information Available Vital Signs Date Vital Result Comment 03/07/2018 11:38am Height 68 inches 5'8" Weight 214.00 lb Heart Rate 64 /min BP Systolic 122 mmHg BP Diastolic 70 mmHg BMI (Body Mass Index) 32.5 kg/m2 01/28/2018 1:28pm Height 68 inches 5'8" Weight 224.50 lb Heart Rate 89 /min BP Systolic 132 mmHg BP Diastolic 70 mmHg Respiratory Rate 18 /min Pain Level 3 BMI (Body Mass Index) 34.1 kg/m2 09/27/2017 10:51am Height 68 inches 5'8" Weight 217.00 lb Heart Rate 66 /min BP Systolic Sitting 124 mmHg Rue large cuff BP Diastolic Sitting 82 mmHg Rue large cuff Respiratory Rate 20 /min O2 % BldC Oximetry 94 % On Ra BMI (Body Mass Index) 33.0 kg/m2 06/04/2016 2:23pm Height 68 inches 5'8" Weight 210.00 lb Heart Rate 66 /min BP Systolic 110 mmHg BP Diastolic 72 mmHg Respiratory Rate 18 /min Body Temperature 97.9 F BMI (Body Mass Index) 31.9 kg/m2 06/02/2016 2:53pm Height 67 inches 5'7" Weight 210.00 lb Heart Rate 62 /min BP Systolic 110 mmHg BP Diastolic 58 mmHg Respiratory Rate 14 /min O2 % BldC Oximetry 96 % BMI (Body Mass Index) 32.9 kg/m2 05/17/2015 10:29am Height 67 inches 5'7" Weight 226.25 lb Heart Rate 66 /min BP Systolic Sitting 122 mmHg BP Diastolic Sitting 64 mmHg Respiratory Rate 18 /min O2 % BldC Oximetry 96 % BMI (Body Mass Index) 35.4 kg/m2 Neck Circumference in inches 16 03/06/2014 9:15am Height 67 inches 5'7" Heart Rate 73 /min BP Systolic Sitting 110 mmHg BP Diastolic Sitting 78 mmHg Respiratory Rate 16 /min O2 % BldC Oximetry 98 % Results Description No Information Available Procedures Date Code Description Status 01/28/2018 10562 Inject/Drain Joint/Bursa Major W/O US Completed Encounters Type Date Location Provider Dx Diagnosis Office Visit 01/28/2018 Orthopedic Laurita Nic, M25.561 Pain in right 1:00p [facility] Lisa Espinal knee M25.562 Pain in left knee M25.461 Effusion, right knee M25.462 Effusion, left knee M17.0 Bilateral primary osteoarthritis of knee M21.161 Varus deformity, not elsewhere classified, right knee M21.162 Varus deformity, not elsewhere classified, left knee Office Visit 09/27/2017 [facility] G47.33 Obstructive sleep 11:00a [facility]Y Chappell RN, apnea (adult) [facility] READING EFFICIENCY COURSE DIRECTOR-BC (pediatric) Z68.33 Body mass index (BMI) 33.0-33.9, adult Office Visit 06/04/2016 2:15p [facility] Rhys Cortes L72.3 Sebaceous cyst Of Rebecca Andino MD, FACS L03.312 Cellulitis of back [any part except buttock] Office Visit 06/02/2016 [facility] G47.33 Obstructive sleep 2:45p [facility] Chappell RN, apnea (adult) Rebecca [employer]ING E[employer]ICIENCY COURSE DIRECTOR-BC (pediatric) Office Visit 05/17/2015 [facility] G47.33 Obstructive sleep 10:15a [facility] Chappell RN, apnea (adult) Med Asst [employer]ING E[employer]IENCY COURSE DIRECTOR-BC (pediatric) Office Visit 03/06/2014 [facility] 327.23 Obstructive Sleep 9:00a [facility] Chappell RN, Apnea Adult & [facility] READING EFFICIENCY COURSE DIRECTOR-BC Pediatric Plan of Treatment Future Appointment(s):03/30/2018 10:00 am - Oj Booker PA-C [facility]03/17/2018 7:30 am - Oj Booker PA-C at [facility]03/17/2018 7:30 am - BEE Anaya at [facility]03/17/2018 7:30 am - Laurita Lucero M.D. at [facility]09/27/2018 11:15 am - Cha Chappell DNP, RN, READING EFFICIENCY COURSE DIRECTOR-BC at [facility]03/07/2018 - Laurita Lucero M.D.M25.561 Pain in right kneeFollow up:Follow up: 2 weeks after bldevpsD41.462 Effusion, left kneeM17.0 Bilateral primary osteoarthritis of kneeM21.162 Varus deformity, not elsewhere classified, left knee
--- OUTSIDE RECORDS SUMMARY | 2018-03-17 10:07 | XMS REPORT | Continuity of Care Document ---
:1950 External Reference #:[id number] Author Name Joie Gallagher Care Team Providers Name Role Phone HCP/LW on file Primary Care Physician Unavailable Payers Type Date Identification Numbers Payment Provider Subscriber Effective: Policy Number: [id number] [facility] Silvio Hatch 2015 Services PayID: [id number] [address] [place] [address] Effective: 2016 Policy Number: [id number] [employer] Silvio Shepherdlett PayID: [id number] [address] [place] [address] Advance Directives Description No Information Available Problems [...] smoke-free Work Status 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 blood sugar up to 1x/day [...] Tablets 5mg 45tab 1 by mouth 300.4 Zenaidacoff Oxalate 2012 - s every day Reza [...] Tablets 250mg 1Pack Use as 466.0 Ellis , 06/24/2006 Directed Josefa FRAZIER Phenergan W/ 06/19/2006 - Hx Syrup 6.25mg;1 80z [...] Hx Tablets 30tabs 1 po qd Sameer Tony 02/25/2015 Kylie Shelby Pravachol 01/24/2003 - Hx Tablets 20mg 90tabs 1 po hs to Sameer Harp 04/04/2003 lowe blood mercedes Shelby M.D. Maxalt YACHT RIGGER 01/12/2003 - Hx Tablets 10mg 16tabs 1 under tongue Sameer H. 10/13/2004 as needed for Ferger, migraine, may M.D. repeat in 2 hours, max 3 pills in 24 hours B12 - Hx Unknown 01/06/2012 [place] 3 - Hx Unknown 01/10/2013 Immunizations CPT Code Status Date Vaccine Lot # [id number] Given 02/21/2018 Influenza Virus Vaccine, Quadrivalent, Split, [id number] Preservative Free 71678 Given 03/03/2017 Pneumococcal Immunization [id number] 71471 Given 03/03/2017 Influenza Vaccine Split Virus Preservative Free Im [id number] Use 13518 Given 03/02/2016 Influenza Virus Vaccine, Quadrivalent, Split, [id number] Preservative Free 10625 Given 03/02/2016 Prevnar 13 [id number] 18627 Given 02/25/2015 Influenza Virus Vaccine, Quadrivalent, Split, [id number] Preservative Free 68602 Given 01/25/2014 Influenza Virus Vaccine, Quadrivalent, Split, Preservative Free 08158 Given 01/10/2013 Zostavax [id number] 04370 Given 01/10/2013 Flu, Split Virus 3Yrs [id number] 30729 Given 01/06/2012 Flu, Split Virus 3Yrs [id number] 64290 Given 01/06/2011 Adacel or Boostrix, TDaP [id number] 65530 Given 01/06/2011 Flu, Split Virus 3Yrs [id number] 90408 Given 12/28/2007 Flu, Split Virus 3Yrs [id number] 96731 Given 10/13/2004 Td Immunization 90733 Given 01/24/2003 Flu, Split Virus 3Yrs [id number] Refused 01/06/2012 Zostavax Vital Signs Date Vital Result Comment 03/08/2018 9:04am BP Systolic 124 mmHg BP Diastolic 80 mmHg Heart Rate 56 /min O2 % BldC Oximetry 95 % Body [...] A1c 6.8 finding CBC Auto Diff 03/07/2018 [facility] White Blood 5.9 10^3/uL N 3.5- 10.8 4 [phone] Count Red Blood Count 5.68 10^6/uL High [...] Blood Cells % 0.1 Urinalysis Profile 03/07/2018 [facility] Urine Color Yellow [phone] Urine Appearance Clear Urine Specific [place] 1.027 N 1.010-1.030 Urine pH 5.0 N 5-9 Urine Urobilinogen Negative Negative Urine Ketones Negative Negative Urine Protein Negative Negative Urine Leukocytes Negative Negative Urine Blood Negative Negative Urine Nitrite Negative Negative Urine Bilirubin Negative Negative Urine Glucose Negative Negative Urine Culture And 03/07/2018 [facility] Urine Culture SEE RESULT 2 Sensitivities [phone] BELOW Inr/Protime 03/07/2018 [facility] Inr 0.98 N 0.77-1. [phone] Laboratory test 03/07/2018 [facility] Partial 32.2 seconds N 26.0-36 3 finding [phone] Thrombo Time .3 PTT Comp Metabolic Panel 03/07/2018 [facility] Sodium 140 mmol/L N 135- 145 [phone] Potassium 4.3 mmol/L N 3.5-5.0 Chloride 108 [...] Non- 114.4 >60 Egfr 138.4 >60 4 Type & Screen 03/07/2018 [facility] Patient Blood Type A Positive [phone] Antibody Screen NEGATIVE Laboratory test finding 03/10/2017 [facility] Alt 30 U/L N 7-52 5 [phone] Lipid Profile 03/10/2017 [facility] Triglycerides 59 mg/dL 6 (Trig/Chol/HDL) [phone] Cholesterol 134 mg/dL 7 HDL Cholesterol 53.3 mg/dL 8 LDL Cholesterol 69 mg/dL 9 Basic Metabolic Panel 03/10/2017 [facility] Sodium 138 mmol/L N 133- 145 [phone] Potassium 4.3 mmol/L N 3.5-5.0 Chloride 106 mmol/L N 101-111 Co2 Carbon Dioxide 26 mmol/L N 22-32 Anion Gap 6 mmol/L N 2-11 Glucose 94 mg/dL N 70-100 Blood Urea Nitrogen 12 mg/dL N 6-24 Creatinine 0.67 mg/dL N 0.67-1.17 BUN/Creatinine Ratio 17.9 N 8-20 Calcium 8.8 mg/dL N 8.6-10.3 Egfr Non- 118.7 >60 Egfr 152.6 >60 10 Urine Microalbumin 03/10/2017 [facility] Ur Microalbumin < 15.0 mg/L Random [phone] (mg/L) Urine Creatinine 184.24 mg/dL Urine Microalbumin/Creatinine TNP ug/mg <31 11 Laboratory test 03/03/2017 In House Hemoglobin A1c 6.5 finding Laboratory test 06/05/2016 [facility] Hemoglobin A1c 6.7 % High Less than 12 finding [phone] (Glyco HGB) 6.0 Urine Micro 03/02/2016 In House Ua WBC - 13 Inhouse Ua RBC - Ua Casts - Ua Epi - Ua Other - Ua Glucose - Ua Bilirubin - Ua Ketones - Ua Specific [place] 1.015 Ua Blood - Ua PH 5.0 Ua Protein - Ua Urobilinogen - Ua Nitrite - Ua Leukocytes - Laboratory test finding 03/02/2016 In House Hemoglobin A1c 7.0 Lipid Profile 02/14/2016 [facility] Triglycerides 55 mg/dL N 14 (Trig/Chol/HDL) [phone] Cholesterol 121 mg/dL N 15 HDL Cholesterol 45.2 mg/dL N 16 LDL Cholesterol 65 mg/dL N 17 Laboratory test finding 02/14/2016 [facility] Glucose 100 mg/dL N 70- 100 [phone] Alt (SGPT) 19 U/L N 7-52 Laboratory test 03/25/2015 [facility] Surgical SEE RESULT 18 finding [phone] Pathology BELOW Laboratory test 03/11/2015 [facility] Alt (SGPT) 20 U/L N 7-52 19 finding [phone] Glucose 116 mg/dL High 70-100 20 Lipid Profile (Trig/Chol/HDL) 03/11/2015 [facility] Triglycerides 72 mg /dL N 21 [phone] Cholesterol 105 mg/dL N 22 HDL Cholesterol 40.8 mg/dL N 23 LDL Cholesterol 50 mg/dL N 24 Laboratory test 03/19/2014 [facility] Alt 23 U/L N 7-52 25, 26 finding [phone] Lipid Profile 03/19/2014 [facility] Triglycerides 82 mg/dL N 27 (Trig/Chol/HDL) [phone] Cholesterol 109 mg/dL N 28 HDL Cholesterol 42.1 mg/dL N 29 LDL Cholesterol 51 mg/dL N 30 Laboratory test finding 12/30/2012 [facility] Alt 21 U/L 14-54 31 [phone] Lipid Profile 12/30/2012 [facility] Triglycerides 83 mg/dL 40-200 (Trig/Chol/HDL) [phone] Cholesterol 150 mg/dL Less than 200 HDL Cholesterol 38 mg/dL Low 40-60 32 Cholesterol/HDL Ratio 4.0 Average 1-4.44 LDL Cholesterol 95.4 Less Than 100 33 Laboratory test finding 12/17/2011 [facility] Alt (SGPT) 29 U/L 17- 63 [phone] Lipid Profile 12/17/2011 [facility] Triglyceride 49 mg/dL 40-200 (Trig/Chol/HDL) [phone] Cholesterol 129 mg/dL Less Than 200 34 High Density Lipoprotein 38 mg/dL Low 40-60 35 Cholesterol/HDL Ratio 3.39 AVERAGE 1-4.97 Low Density Lipoprotein 81 mg/dL Less Than 100 36 Laboratory test finding 12/19/2010 [facility] Alt (SGPT) 22 U/L 17- 63 [phone] Lipid Profile 12/19/2010 [facility] Triglyceride 63 mg/dL 40-200 (Trig/Chol/HDL) [phone] Cholesterol 136 mg/dL Less Than 200 37 High Density Lipoprotein 40 mg/dL 40-60 38 Cholesterol/HDL Ratio 3.40 AVERAGE 1-4.97 Low Density Lipoprotein 83 mg/dL Less Than 100 39 CBC With Electronic 01/14/2010 [facility] White Blood 6.8 CUMM 4.8- 10.8 Diff [phone] Count Red Cell Count 5.61 CUMM 4.6-6.2 [...] Basophils 0 0-0.2 Laboratory test finding 01/14/2010 [facility] TSH 1.47 MIU/ML 0.34- 5.60 [phone] Urine Micro Inhouse 12/30/2009 In House Ua WBC - Ua RBC - Ua Casts - Ua Epi - Ua Other - Ua Glucose - Ua Bilirubin - Ua Ketones - Ua Specific [place] 1.025 Ua Blood - Ua PH 5.0 Ua Protein - Ua Urobilinogen - Ua Nitrite - Ua Leukocytes - Laboratory test finding 12/03/2009 [facility] Alt (SGPT) 26 U/L 70- 99 [phone] Lipid Profile 12/03/2009 [facility] Triglyceride 48 mg/dL 40-200 (Trig/Chol/HDL) [phone] Cholesterol 137 mg/dL Less Than 200 40 High Density Lipoprotein 33 mg/dL Low 40-60 41 Cholesterol/HDL Ratio 4.15 AVERAGE 1-4.97 Low Density Lipoprotein 94 mg/dL Less Than 100 42 Lipid Profile 12/06/2008 [facility] Triglyceride 53 mg/dL 40-200 (Trig/Chol/HDL) [phone] Cholesterol 137 mg/dL Less Than 200 43 High Density Lipoprotein 37 mg/dL Low 40-60 44 Cholesterol/HDL Ratio 3.70 AVERAGE 1-4.97 Low Density Lipoprotein 89 mg/dL Less Than 100 45 Laboratory test finding 12/06/2008 [facility] Alt (SGPT) 23 U/L 17- 64 [phone] Laboratory test finding 12/01/2007 [facility] Alt (SGPT) 23 U/L 17 63 [phone] Lipid Profile 12/01/2007 [facility] Triglyceride 90 mg/dL 40-200 (Trig/Chol/HDL) [phone] Cholesterol 148 mg/dL Less Than 200 46 High Density Lipoprotein 37 mg/dL Low 40-60 47 Cholesterol/HDL Ratio 4.00 AVERAGE 1-4.97 Low Density Lipoprotein 93 mg/dL Less Than 100 48 Lipid Profile 12/12/2006 [facility] Cholesterol/HDL 4.25 1-4.97 (Trig/Chol/HDL) [phone] Ratio AVERAGE Cholesterol 136 mg/dL Less Than 200 49 Triglyceride 90 mg/dL 40-200 High Density Lipoprotein 32 mg/dL Low 40-60 50 Low Density Lipoprotein 86 mg/dL Less Than 100 51 Laboratory test finding 12/12/2006 [facility] Alt (SGPT) 26 U/L 17- 63 [phone] Laboratory test finding 12/04/2005 [facility] Alt (SGPT) 28 U/L 17- 63 52 [phone] Glucose 87 mg/dL 70-105 Lipid Profile 12/04/2005 [facility] Cholesterol 160 mg/dL Less Than 53 (Trig/Chol/HDL) [phone] 200 Triglyceride 106 mg/dL 40-200 High Density Lipoprotein 43 mg/dL 40-60 Low Density Lipoprotein 96 mg/dL Less Than 100 54 Cholesterol/HDL Ratio 3.72 AVERAGE 1-4.97 Laboratory test finding 10/07/2004 [facility] Alt (SGPT) 28 U/L 17- 63 [phone] Glucose 91 mg/dL 70-105 Lipid Profile 10/07/2004 [facility] Cholesterol 157 mg/dL Less Than 55 (Trig/Chol/HDL) [phone] 200 Triglyceride 110 mg/dL 40-200 High Density Lipoprotein 39 mg/dL Low 40-60 56 Low Density Lipoprotein 96 mg/dL Less Than 100 57 Cholesterol/HDL Ratio 4.03 AVERAGE 1-4.97 Lipid Profile 10/25/2003 [facility] Cholesterol 142 mg/dL Less Than 58 (Trig/Chol/HDL) [phone] 200 Triglyceride 61 mg/dL 40-200 High Density Lipoprotein 38 mg/dL Low 40-60 59 Low Density Lipoprotein 92 mg/dL Less Than 100 60 Cholesterol/HDL Ratio 3.74 AVERAGE 1-4.97 Comp Metabolic Panel 10/25/2003 [facility] Anion Gap 6.0 mmol/L 2- 11 61 [phone] Albumin/Globulin Ratio 1.3 1-3 Albumin 3.8 GM/DL [...] 6.8 GM/DL 6.2-8.1 BUN/Creatinine Ratio 14.4 8-20 Laboratory test finding 10/25/2003 [facility] PSA Screening 2.2 NG/ML 0-4 62 [phone] TSH 1.22 MIU/ML 0.34-5.60 CBC With Electronic 10/25/2003 [facility] White Blood 5.7 CUMM 4.8- 10.8 Diff [phone] Count Abs Basophils 0 0-0.2 Abs Eosinophils [...] Redcell Distribution WDTH 15 % 10.5-15 1 AA 03/17 2 SEE RESULT BELOW Name: SILVIO HATCH : [address]: Laurita Lucero MD Acct: [id number] Unit: [id number] AGE: 67 Location: [facility] Re03/07/18 SEX: M Status: REG REF SPEC: [id number] MARKEL: 03/07/[address]: Laurita Lucero MD REQ: [id number] RECD: 03/07/18 STATUS: RIA MORRISON DR: Reza Eden MD _ SOURCE: URINE SPDESC: ORDERED: Urine Culture COMMENTS: MARK 03/17 QUERIES: Urine Source: Clean Catch Procedure Result Reported Site Urine Culture Final 03/08/18- 1300 ML No Growth (<1,000 CFU/mL) * ML - Main Lab . END OF REPORT DEPARTMENT OF PATHOLOGY, [address] [place] [address] Tito Gutiérrez M.D. Director [facility] # [id number] 3 03/17 4 Because ethnic data is not always [...] 5 Kidney failure <15 (or dialysis) 5 FASTING 12 HOUR 6 Desirable: <150 Borderline High: 150-199 High: 200-499 Very High: >500 7 Desirable: <200 Borderline High: 200-239 High: >239 8 Low: <40 Desirable: 40-60 High: >60 9 Desirable: <100 Near Optimal: 100-129 Borderline High: 130-159 High: 160-189 Very High: >189 10 Because ethnic data is not always readily [...] 15-29 5 Kidney failure <15 (or dialysis) 11 Unable to calculate due to low microalbumin 12 Therapeutic target for the treatment of diabetes Mellitus patients is <7% HBA1C, and in selective patients <6.0%.Please refer to [place] [employer] Diabetic care guidelines for further [...] [address]: Shantanu Hayes MD Acct: [id number] Unit: [id number] AGE: 64 Location: [facility] Re03/25/15 SEX: M Status: REG REF SPEC: [id number] MARKEL: 03/25/15- SUBM DR: Shantanu Hayse MD REQ: [id number] RECD: 03/25/15160 STATUS: DARY MORRISON DR: Reza Eden MD [...] performed at Main Lab DEPARTMENT OF PATHOLOGY, [address] [place] [address] Tito Gutiérrez M.D. Director [facility] # [id number] 19 FASTING 20 FASTING 21 Desirable <150 Borderline high 150-199 High 200-499 Very High >500 22 Desirable <200 Borderline high 200-239 High >239 23 Low <40 Desirable: 40-60 High: >60 24 Desirable: <100 mg/dL Near Optimal: 100-129 mg/dL Borderline High: 130-159 mg/dL High: 160-189 mg/dL Very High: >189 mg/dL 25 FASTING 12 HOUR 26 FASTING 12 HOUR 27 Desirable <150 Borderline high 150-199 High 200-499 Very High >500 28 Desirable <200 Borderline high 200-239 High >239 29 Low <40 Desirable: 40-60 High: >60 30 Desirable <100 Near Optimal 100-129 Borderline high 130-159 High 160-189 Very High >189 31 FASTING 12 HOUR 32 HDL Interpretation: Undesirable: High Risk: Less than 40 mg/dL Desirable: Low Risk: Greater than 60 mg/dL 33 LDL Interpretation: Low Risk Optimal Level: LDL Less than 100 mg/dL Near or Above Optimal: LDL 100-129 mg/dL Borderline High Risk: LDL 130-159 mg/dL High Risk: LDL 160-189 mg/dL Very High Risk: LDL Greater than 189 mg/dL 34 CHOLESTEROL INTERPRETATION: Desirable: Less than 200 [...] LDL MEASUREMENT. Classification: Optimal Level . 58 Classification: Desirable . 59 Classification: Low . 60 CALCULATED LDL APPROXIMATES THE VALUE OF A DIRECT LDL MEASUREMENT. Classification: Optimal Level . 61 Anion gap measurement may be of limited value in the presence of any alkalosis, especially in a combined acid base disorder. . 62 * SERUM LEVELS OF PSA MEASURED USING THE [employer] ACCESS HYBRITECH IMMUNOASSAY SHOULD NOT BE INTERPRETED ABSOLUTE EVIDENCE OF THE PRESENCE OR ABSENCE OF DISEASE. THE PSA VALUE SHOULD BE USED IN CONJUNCTION WITH OTHER PERTINENT CLINICAL DIAGNOSTIC PROCEDURES. Procedures Date Code Description Status 03/08/2018 462168658 Diabetic Foot Exam Completed 04/01/2017 [id number] Diabetic Retinal Eye Exam Completed 03/05/2015 [id number] Colonoscopy Completed Encounters Type Date Location Provider [...] Encntr for oth proc for purpose oth [facility] Office Visit 01/12/2014 9:45a Main Office Reza [...] Inoculation/Influenza V07.2 Prophylactic Immunotherapy Office 01/06/2011 Main [facility] V06.1 Avfvmxcvoz-Rbzrrzq-Corittqd Visit 10:30a Office Kylie Cobb Combined (DTaP) [...] Disorder M.DTony 300.01 Panic Disorder W/O Agoraphobia 346.10 Migraine [...] Disorder M.DTony 300.01 Panic Disorder W/O Agoraphobia 346.10 Migraine Common W/O Intractable W/O Status Migrainosus Office Visit 06/19/2006 10:30a Main Office Josefa Corral MD 466.0 Bronchitis Acute Office Visit 01/12/2006 3:30p Main Office Reza Eden, V70.0 Examination General M.D. 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 at Main Dqvkkq9803/08/2018 - Reza Eden M.D.Z01.818 Encounter for other preprocedural cuitrutewsiY46.00 Encounter for general adult medical examination without abnoE11.9 Type 2 diabetes mellitus without complicationsFollow up:RTO 1yr DMHM w/ A1c. Stop in for fasting bloodwork the week prior.M25.562 Pain in left kneeM17.0 Bilateral primary osteoarthritis of kneeE78.00 Pure hypercholesterolemia, [id number] Encounter for immunizationNew Medication: Shingrix 50 mcg/0.5ML - administer 2 doses as directed, per cdc guidelinesComments:Counseled re Shingrix, Rx provided.
[2018-03-17] MEDS ORDERED: Midazolam* 1 MG/ML 2 ML VIAL (2 MG) ONE (11:00)
[2018-03-17] MEDS ORDERED: Propofol* 500 MG/50 ML BTL ONE (11:00)
[2018-03-17] MEDS ORDERED: fentaNYL* 50 MCG/ML 2 ML VIAL (100 MCG VIAL) ONE (11:00)
[2018-03-17] MEDS ORDERED: Lidocaine 2% PF * 5 ML VIAL ONE (11:00)
[2018-03-17] MEDS ORDERED: Bupivacaine-MPF SPINAL* 7.5 MG/ML - 2ML AMP ONE (11:01)
[2018-03-17] MEDS ORDERED: Lidocaine 1%* 5 ML VIAL ONE (12:34)
[2018-03-17] MEDS ORDERED: ROPIVACAINE 5 MG/ML 30 ML BTL (0.5%) ONE (12:34)
[2018-03-17] MEDS ORDERED: Bupivacaine 0.5% PF 10 ML VIAL INJ ONE (12:39)
[2018-03-17] MEDS ORDERED: Acetaminophen IV 1GM/100ML * 1,000 MG/100 ML VIAL IVPB ONE (14:11)
[2018-03-17] MEDS ORDERED: fentaNYL* 50 MCG/ML 2 ML VIAL (100 MCG VIAL) IV PRN (14:11)
[2018-03-17] MEDS ORDERED: Morphine VIAL* 4 MG/ML VIAL (1 ml vial) IV PRN ×2 (14:11→15:54)
[2018-03-17] MEDS ORDERED: oxyCODONE TAB* 5 MG TAB PO PRN (14:11)
[2018-03-17] MEDS ORDERED: Ondansetron INJ* 2 MG/ML VIAL IV PRN (14:11)
[2018-03-17] MEDS ORDERED: Naloxone* 0.4 MG/ML 1 ML VIAL IV PRN (14:11)
[2018-03-17] MEDS ORDERED: Ketorolac INJ* 30 MG/ML 1 ML VIAL IV PRN (14:11)
[2018-03-17] MEDS ORDERED: Propofol* 10 MG/ML 20 ML BTL ONE ×2 (14:22→14:51)
[2018-03-17] MEDS ORDERED: Polyethylene Glycol 3350* 17 GM PACKET PO PRN (15:54)
[2018-03-17] MEDS ORDERED: oxyCODONE/Acetamin 5/325 MG* TAB PO PRN (15:54)
[2018-03-17] MEDS ORDERED: Magnesium Hydroxide LIQ* 30 ML UDC PO PRN (15:54)
[2018-03-17] MEDS ORDERED: Bisacodyl SUPP* 10 MG SUPP PR PRN (15:54)
[2018-03-17] MEDS ORDERED: Acetaminophen TAB* 325 MG PO PRN (15:54)
[2018-03-17] MEDS ORDERED: diPHENhydraMINE IV* 50 MG/ML 1 ml VIAL (BENADRYL) IV PRN (15:54)
[2018-03-17] MEDS ORDERED: Ketorolac INJ* 30 MG/ML 1 ML VIAL ONE (16:19)
[2018-03-17] MEDS ORDERED: Acetaminophen IV 1GM/100ML * 100 ML ONE (16:19)
[2018-03-17] MEDS ORDERED: Warfarin TAB(*) 6 MG PO ONE (17:00)
[2018-03-17] MEDS: oxyCODONE TAB* 5 MG TAB PO PRN (17:31)
[2018-03-17] MEDS: Ondansetron INJ* 2 MG/ML VIAL IV PRN (18:14)
[2018-03-17] MEDS: Docusate CAP* 100 MG PO SCH (20:45)
[2018-03-17] MEDS: oxyCODONE/Acetamin 5/325 MG* TAB PO PRN (20:46)
[2018-03-17] MEDS: Magnesium Hydroxide LIQ* 30 ML UDC PO SCH (20:46)
[2018-03-17] MEDS: ceFAZolin 1 GM ADVAN(*) 1 GM in NS 0.9% 50 ML* 50 ML IVPB SCH (20:48)
--- NOTE | 2018-03-17 22:29 | CONS ---
CONSULTATION REPORT: DATE OF ADMISSION: 03/17/18 DATE OF CONSULT: 03/17/18 ATTENDING PHYSICIAN: Dr. Lucero. CONSULTING PHYSICIAN: Dr. Phillip Garcia (dictated by Safia Em NP). REASON FOR CONSULT: Comanagement of chronic medical conditions. HISTORY OF PRESENT ILLNESS: Mr. Hatch is a 67-year-old male with a past medical history significant for diet-controlled diabetes type 2, hyperlipidemia , and osteoarthritis, who presented to [facility] today for an elective left total knee arthroplasty with Dr. Lucero. In immediate postoperative period, the patient has no complaints. Please see H and P from B[facility] Weinberg, for a complete detail. In brief, the patient had ongoing pain and failed conservative measures; therefore, opted for an elective left total knee arthroplasty with Dr. Lucero. In the immediate postoperative period, the patient has no complaints. He reports she has been in his normal state of health prior to admission to the hospital. The patient denies any fevers or chills, unintended weight loss. Denies any chest pain or edema. Denies any cough, congestion or hemoptysis. Denies any nausea, vomiting, or diarrhea. Denies any abdominal pain. Denies any gross hematuria or dysuria. Denies any focal weakness or sensory loss. Denies any visual complaints. Denies any dysphagia. Denies any changes in his arthralgia or myalgias. Denies any rashes or lesions, psychosis or anxiety. PAST MEDICAL HISTORY: 1. Type 2 diabetes, diet controlled. 2. Hyperlipidemia. 3. Osteoarthritis. PAST SURGICAL HISTORY: 1. Trigger finger release on the right. 2. Left medial meniscus tear repair. HOME MEDICATIONS: Include: 1. Lipitor. 2. Meloxicam 50 mg p.o. b.i.d. ALLERGIES: No known drug allergies. FAMILY HISTORY: Father with a history of unknown heart disease, diabetes, maternal grandfather with a history of type 2 diabetes and cancer, father with a history of colon cancer. SOCIAL HISTORY: Denies any tobacco use. Reports rare alcohol use. Denies any illicit drug use. He is retired. He is , lives with his . In the event he is unable to make his own decisions, his and daughter are his surrogate decision makers. He is a full code. His 's name is Raquel Hatch. Her phone number is [phone]. REVIEW OF SYSTEMS: Denies any fevers or chills. Denies any chest pain or edema. Denies any cough, congestion, or hemoptysis. Denies any nausea, vomiting , or diarrhea. Denies any abdominal pain. Denies any gross hematuria or dysuria. Denies any focal weakness or sensory loss. Denies any visual complaints, dysphagia, arthralgias or myalgias, rashes, lesions, psychosis or anxiety. PHYSICAL EXAM: Vital Signs: Temperature 97.3, heart rate 64, respirations 16, O2 saturation 97%, blood pressure 111/74. General: Mr. Hatch is a 67-year- old male. He appears well sitting on his bed in his hospital room. He is in no acute distress. Neurologic: He is awake, alert, oriented x3. He is able to move all 4 extremities with 5/5 strength. HEENT: Head is atraumatic, normocephalic. Eyes: EOMs are intact. Sclerae anicteric and not pale. Oral mucosa appears to be moist. Neck is supple. Lungs are clear to auscultation bilaterally. No wheezes, rales, or rhonchi. Cardiac: S1, S2. Regular rate and rhythm. No murmurs, rubs, or gallops. Abdomen is round, soft, nontender. Bowel sounds are present x4. Extremities: Pedal pules are +2 bilaterally. Sensation is intact. He does have a dressing intact to his left knee with with ice pack intact. Skin: There is a dressing to the left knee that is dry and intact. There is no cyanosis or clubbing noted to the extremities. DIAGNOSTIC STUDIES/LAB DATA: On 03/07/18; WBCs were 5.9, RBCs 5.68, hemoglobin 15.4, hematocrit was 46, platelet count was 160. INR was 0.98. Sodium 140, potassium 4.3, chloride 108, carbon dioxide was 25, anion gap 7, BUN was 22, creatinine 0.69, calcium 9.4, AST was 16, ALT was 23. Urine was within normal limits with no abnormality. IMPRESSION: Mr. Hatch is a 67-year-old male with past medical history significant for type 2 diabetes, diet controlled; hyperlipidemia; and osteoarthritis, who was sent in for an elective left total knee arthroplasty with Dr. Lucero. In the immediate postoperative period, he has no complaints. Due to his history of diabetes and hyperlipidemia, we were asked to comanage his chronic medical conditions. Our recommendations are as follows: 1. Status post left total knee arthroplasty with Dr. Lucero, managed per Orthopedics, PT/OT per Orthopedics, DVT prophylaxis per Orthopedics, bowel regimen per Orthopedics. 2. Diabetes type 2. I would recommend Accu-Checks a.c. with lispro sliding scale. 3. Hyperlipidemia. Continue on atorvastatin as previously prescribed. 4. DVT prophylaxis per Orthopedics. 5. FEN. He can have a regular diet. 6. Code status: He is a full code. TIME SPENT: Time spent on this consultation was 45 minutes, more than half that time was spent with the patient at the bedside reviewing events leading thus far to his hospitalization, performing physical exam, and reviewing my plan of care. I have discussed with this with my attending, Dr. Keith Garcia; he is in agreement with my plan. SAFIA ME, DICKSON [id number]/CPS #: [id number] TODD
[2018-03-18] MEDS: oxyCODONE/Acetamin 5/325 MG* TAB PO PRN ×3 (01:58→23:48)
[2018-03-18] MEDS: oxyCODONE TAB* 5 MG TAB PO PRN ×3 (04:45→22:18)
[2018-03-18] MEDS: ceFAZolin 1 GM ADVAN(*) 1 GM in NS 0.9% 50 ML* 50 ML IVPB SCH ×2 (04:49→12:38)
[2018-03-18 06:20] LABS: Hematocrit 37 % (42-52); Hemoglobin 12.6 g/dl (14.0-18.0); Platelet Count 144 10^3/ul (150-450)
[2018-03-18 06:23] LABS: INR 1.14 (0.77-1.02)
[2018-03-18 06:37] LABS: EGFR Non-African American 112.5 (>60)
--- NOTE | 2018-03-18 07:10 | PN ---
Progress Note - Progress Note Date of Service: 03/18/18 SOAP: Subjective: Pt. is alert, reports pain is minimal. Objective: Vital Signs: Temp Pulse Resp BP Pulse Ox 97.6 F 56 16 107/60 96 03/18/18 04:09 03/18/18 04:09 03/18/18 04:45 03/18/18 04:09 03/18/18 04:09 Laboratory Results - last 24 hr 03/17/18 03/17/18 03/17/18 10:51 12:25 17:04 Hgb Hct Plt Count MPV INR (Anticoag Therapy) Sodium Potassium Chloride Carbon Dioxide Anion Gap BUN Creatinine Est GFR ( Amer) Est GFR (Non-Af Amer) BUN/Creatinine Ratio Glucose POC Glucose (mg/dL) 109 H 204 H Calcium Ur Random Microalbumin < 15.0 Ur Creatinine mg/dL 90.74 Microalb/Creat Ratio TNP 03/18/18 03/18/18 03/18/18 05:28 05:28 05:28 Hgb 12.6 L Hct 37 L Plt Count 144 L MPV 8.0 INR (Anticoag Therapy) 1.14 H Sodium 136 Potassium 4.3 Chloride 106 Carbon Dioxide 23 Anion Gap 7 BUN 20 Creatinine 0.70 Est GFR ( Amer) 136.1 Est GFR (Non-Af Amer) 112.5 BUN/Creatinine Ratio 28.6 H Glucose 210 H POC Glucose (mg/dL) Calcium 8.3 L Ur Random Microalbumin Ur Creatinine mg/dL Microalb/Creat Ratio Assessment: 67 yo M pod 1 s/p LTKA Plan: wbat pt/ot lovenox today - home on lovenox vs eliquis plan home with vns, likely 03/19
[2018-03-18] MEDS: Magnesium Hydroxide LIQ* 30 ML UDC PO SCH ×2 (09:29→19:41)
[2018-03-18] MEDS: Vitamin THERAPEUTIC TAB PO SCH (09:29)
[2018-03-18] MEDS: Docusate CAP* 100 MG PO SCH ×2 (09:29→19:41)
[2018-03-18] MEDS: Ondansetron INJ* 2 MG/ML VIAL IV PRN (11:31)
[2018-03-18] MEDS: Enoxaparin(*) 40 MG/0.4 ML SYR SUBCUT SCH (11:54)
--- NOTE | 2018-03-18 15:21 | PN ---
Subjective Date of Service: 03/18/18 Interval History: Pt here for LTKA. He states that he feels well; he denies fever and states that pain is well controlled with medications. He is not having any difficulty with movement and states that he was able to complete stairs today withe the assistance of PT. Pt states that he does feel as if he is retaining urine. Child was discontinued between 0630 and 0730 this morning, and pt was able to void approximately 100mL around lunchtime, although he still feels like he has to urinate. In the past, his doctor has stated that he may have a slight issue with his prostate, although he was "better than most men his age." He states that he never has the urge to urinate at night, but that he occasionally gets urgency during the day, reporting that this occurs approximately 2 times per week. He states he does not get his PSA checked. Pt attempted void at approximately 1500, producing about 100mL dark, concentrated urine, per nurse. Bladder scan revealed 22cc PVR. Pt appears to be hypovolemic with oliguria; he is not retaining significant urine. Objective Active Medications: Acetaminophen (Tylenol Tab*) 650 mg PO Q8H PRN PRN Reason: PAIN OR TEMPERATURE Bisacodyl (Dulcolax Supp*) 10 mg VA DAILY PRN PRN Reason: constipation Cyclobenzaprine HCl (Flexeril Tab*) 5 mg PO TID PRN PRN Reason: SPASMS Diphenhydramine HCl (Benadryl Iv*) 25 mg IV Q6H PRN PRN Reason: itching Docusate Sodium (Colace Cap*) 100 mg PO BID [facility] Last Admin: 03/18/18 09:29 Dose: 100 mg Enoxaparin Sodium (Lovenox(*)) 40 mg SUBCUT Q24H [facility] Last Admin: 03/18/18 11:54 Dose: 40 mg Lactated Ringer's (Lactated Ringers 1000 Ml Bag*) 1,000 mls @ 100 mls/hr IV PER RATE [facility] Last Admin: 03/18/18 12:37 Dose: 100 mls/hr Lactulose (Lactulose*) 30 ml PO Q6H PRN PRN Reason: constipation Magnesium Hydroxide (Milk Of Magnesia Liq*) 30 ml PO BID [facility] Last Admin: 03/18/18 09:29 Dose: 30 ml Magnesium Hydroxide (Milk Of Magnesia Liq*) 30 ml PO Q6H PRN PRN Reason: constipation Morphine Sulfate (Morphine Vial*) 2 mg IV Q2H PRN PRN Reason: PAIN Multivitamins (Theragran Tab*) 1 tab PO DAILY [facility] Last Admin: 03/18/18 09:29 Dose: 1 tab Ondansetron HCl (Zofran Inj*) 4 mg IV Q6H PRN PRN Reason: nausea Last Admin: 03/18/18 11:31 Dose: 4 mg Oxycodone HCl (Roxycodone Tab*) 10 mg PO Q4H PRN PRN Reason: PAIN - SEVERE Last Admin: 03/18/18 11:54 Dose: 10 mg Oxycodone/Acetaminophen (Percocet 5/325 Tab*) 1 tab PO Q4H PRN PRN Reason: PAIN Oxycodone/Acetaminophen (Percocet 5/325 Tab*) 2 tab PO Q4H PRN PRN Reason: PAIN Last Admin: 03/18/18 09:26 Dose: 2 tab Polyethylene Glycol/Electrolytes (Miralax*) 17 gm PO DAILY PRN PRN Reason: Constipation Vital Signs - 8 hr 03/18/18 03/18/18 03/18/18 08:00 08:19 09:26 Temperature 98.4 F Pulse Rate 68 Respiratory 18 16 18 Rate Blood Pressure 102/54 (mmHg) O2 Sat by Pulse 90 90 Oximetry 03/18/18 03/18/18 11:21 11:54 Temperature 97.9 F Pulse Rate 58 Respiratory 18 14 Rate Blood Pressure 102/58 (mmHg) O2 Sat by Pulse 95 Oximetry Oxygen Devices in Use Now: None Eyes: No Scleral Icterus Ears/Nose/Mouth/Throat: NL Teeth, Lips, Gums, Mucous Membranes Moist Respiratory: Symmetrical Chest Expansion and Respiratory Effort, Clear to Auscultation Cardiovascular: NL Sounds; No Murmurs; No JVD, RRR, No Edema Abdominal: NL Sounds; No Tenderness; No Distention Extremities: No Edema, No Clubbing, Cyanosis, - - Pedal pulses intact. Neurological: Alert and Oriented x 3 Result Diagrams: 03/18/18 05:28 03/18/18 05:28 Assess/Plan/Problems-Billing Assessment: Pt is LTKA, Type II DM, which is controlled with diet. Pt has had poor UOP in last 24h. - Patient Problems (1) S/P total knee arthroplasty Current Visit: Yes SNOMED Code(s): 8969331274495 Comment: -Management and care per Dr. Lucero (2) Oliguria Code(s): R34 - ANURIA AND OLIGURIA SNOMED Code(s): 42089454 Comment: -Push fluids -Discontinue LR -Start NS 1L bolus over 1h; maintenance NS at 125mL/h -Encourage voiding -Continue to monitor I/O -BMP for renal function in a.m. (3) Diabetes mellitus type II, controlled, with no complications Code(s): E11.9 - TYPE 2 DIABETES MELLITUS WITHOUT COMPLICATIONS SNOMED Code(s) : 735609724 Comment: -Transient hyperglycemia noted on labs; will recheck blood sugar in a.m. -Continue to control with diet (4) Hyperlipidemia Code(s): E78.5 - HYPERLIPIDEMIA, UNSPECIFIED SNOMED Code(s): 41322916 Status and Disposition: Dispo as per ortho.
[2018-03-18] MEDS ORDERED: NS 0.9% 1000 ML* 1,000 ML IV ONE (16:08)
[2018-03-18] MEDS: NS 0.9% 1000 ML* 1,000 ML IV SCH (18:02)
[2018-03-18] MEDS: Cyclobenzaprine TAB* 10 MG PO PRN (22:51)
--- NOTE | 2018-03-19 00:49 | OP ---
OPERATIVE NOTE: DATE OF OPERATION: 03/17/18 DATE OF : 50 SURGEON: Laurita Lucero MD AUTOMATION OPERATOR: BEE Hughes Mr. Booker did help throughout the procedure with preparation of the leg, wound retraction, manipulat ion of the knee, and wound closure. ANESTHESIOLOGIST: Dr. Chan. ANESTHESIA: General. PRE-OP DIAGNOSIS: Severe end-stage degenerative osteoarthritis of the left knee joint. POST-OP DIAGNOSIS: Severe end-stage degenerative osteoarthritis of the left knee joint. OPERATIVE PROCEDURE: Left total knee arthroplasty. TOURNIQUET TIME: 48 minutes. COMPLICATIONS: None. ESTIMATED BLOOD LOSS: 300 cc. SPECIMEN: Bone and cartilage from the left knee joint sent to Pathology. HARDWARE USED: This is cemented [employer] total knee arthroplasty hardware. For the cement, t wo packages of Simplex bone cement. For the femur, a left size 7 posterior stabilized Legion femoral component. For the tibia, a left Nika II size 6 tibial base plate. For the insert, a 9 mm poste rior stabilized articular insert, size 5/6. For the patella, a 32 mm 3-peg all poly patella. INDICATIONS: Mr. Hatch is a 67-year-old gentleman with a history of chronic left knee pain. His r adiographs showed advanced arthritis. He failed conservative treatment with antiinflammatories, pain medication, intraarticular injection, and physical therapy. Due to continued pain and decreased ana lity of life, he elected to undergo left total knee arthroplasty. Informed consent was obtained from the patient. He understood the risks of surgery included but were not limited to bleeding, infectio n, damage to nearby structures, continued pain, need for further surgery, intraoperative fracture, ne rve palsy, hardware failure or loosening, knee stiffness, loss of motion, stroke, heart attack, blood clot, and . He wished to proceed. INTRAOPERATIVE FINDINGS: Intraoperatively, the patient was noted to have severe end-stage arthritis with thickness loss in all 3 compartments. Extensive osteophyte formation was noted. DESCRIPTION OF PROCEDURE: Mr. Hatch was identified in the preanesthesia unit. His left lower extre mity was marked as the correct operative side. Informed consent was signed and placed in the chart. The patient was taken to the operating room and placed under general anesthesia. A Child catheter w as placed. Tourniquet was placed on the left thigh. Left lower extremity was prepped and draped in the usual sterile fashion. Preop time-out was made to correctly identify the patient, side, and site . Appropriate perioperative antibiotics were given within 1 hour of incision. Tourniquet was inflated and total tourniquet time for this procedure was 48 minutes. A midline incis ion was made with a 10-blade. A new 10-blade was used to make a standard medial parapatellar arthrot carlos. Patella was subluxed laterally. Electrocautery was used to subperiosteally elevate the soft tis valentín off the superomedial tibia to the mid sagittal plane. The knee was flexed up. The anterior horn of the lateral meniscus and ACL were sharply released. A drill was used to enter the distal femur. Intramedullary distal femoral cutting guide was pinned on the distal femur. Oscillating saw was use d to make the distal femoral cut. Next, the external rotation guide was pinned on the distal femur. Distal femur was sized to a size 7. Size 7 multi-cutting jig was pinned on the distal femur. Oscil lating saw was used to make the appropriate 4 chamfer cuts. The PCL was completely released. Tibia was subluxed anteriorly. Extramedullary tibial cutting guide was pinned on the proximal tibia. Oscillating saw was used to make the proximal tibial cut perpendi cular to the mechanical axis of the tibia. The bone was carefully removed. The knee was brought out into full extension. Spacer block had good fit with appropriate medial and lateral ligamentous balanc ing. Flexion and extension gaps were well balanced. The knee was flexed up. Lamina industrial cafeteria manager was michelle nimco both medially and laterally. Any remaining meniscus was carefully removed using electrocautery. Curved osteotome was used to remove any posterior osteophytes. A size 7 left femoral trial was impacted onto the distal femur and had excellent fit. The box for th e posterior stabilized implant was prepared using a reamer and box cut osteotome. Size 6 tibial tray trial with a 9 mm insert trial was placed and the knee was taken through a range of motion. The kne e had full extension to 130 degrees of flexion. There was satisfactory patellofemoral tracking. The patella was everted. A 9 mm of patellar bone and cartilage was carefully removed using an oscillati ng saw. Patella was sized to a size 32. Three peg holes were drilled through the size 32 guide. A 32 trial patella was placed and the knee was taken through a range of motion. There was satisfactory patellofemoral tracking. All trials were carefully removed. The tibia was subluxed anteriorly and sized to a size 6. Proxima l tibia was prepared using a size 6 keel punch. All bony cut surfaces were copiously irrigated with sterile saline and dried. Final implants were cemented into place starting with the tibia, followed by the femur, and last the patella. A 9 mm insert trial was placed and the knee was brought out into full extension. Tourniquet was turned down at 48 minutes. Electrocautery was used to obtain meticu lous hemostasis. The knee was copiously irrigated with sterile saline. Once the cement had fully cured, the insert trial was removed. Any excess cement was carefully remov ed from around the capsule and hardware. Final insert chosen was a 9 mm posterior stabilized articul ar insert size 5/6. This was locked into position on the tibial tray. Stability of the insert was c hecked and rechecked and noted to be stable. The knee was copiously irrigated with sterile saline. The extensor mechanism was closed using interrupted #1 Vicryl. The rest of the incision was closed i n a layered fashion using 0 and 2-0 Vicryl. Skin was closed using running 3-0 nylon suture. Sterile Xeroform, 4x4s, and Webril were used to cover the incision. Delmar wrap and cold pack were placed over this. The patient's anesthesia was reversed without difficulty. He was taken to the PACU in stable condition. Intended weightbearing will be weightbearing as tolerated. Intended DVT prophylaxis adela Bryan. [id number]/[facility] #: [id number]
[2018-03-19] MEDS: NS 0.9% 1000 ML* 1,000 ML IV SCH (02:17)
[2018-03-19] MEDS: Cyclobenzaprine TAB* 10 MG PO PRN ×2 (02:23→08:59)
[2018-03-19] MEDS: oxyCODONE TAB* 5 MG TAB PO PRN ×2 (02:23→06:21)
[2018-03-19] MEDS: oxyCODONE/Acetamin 5/325 MG* TAB PO PRN ×2 (03:48→11:04)
[2018-03-19 06:00] LABS: Hematocrit 35 % (42-52); Hemoglobin 12.1 g/dl (14.0-18.0); Mean Platelet Volume 7.8 fL (7.4-10.4); Platelet Count 134 10^3/ul (150-450)
[2018-03-19 06:15] LABS: INR 1.26 (0.77-1.02)
[2018-03-19 06:22] LABS: EGFR Non-African American 129.4 (>60)
[2018-03-19] MEDS: Docusate CAP* 100 MG PO SCH (08:55)
[2018-03-19] MEDS: Vitamin THERAPEUTIC TAB PO SCH (08:55)
[2018-03-19] MEDS: Magnesium Hydroxide LIQ* 30 ML UDC PO SCH (08:56)
[2018-03-19] MEDS: Enoxaparin(*) 40 MG/0.4 ML SYR SUBCUT SCH (11:47)
--- NOTE | 2018-03-19 12:16 | PN ---
Progress Note - Progress Note Date of Service: 03/19/17 SOAP: Subjective: [] Objective: [] Assessment: [] Plan: []
[2018-03-19 13:08] VITALS: BP 119/67
--- NOTE | 2018-03-20 12:33 | DS ---
DISCHARGE SUMMARY: DATE OF ADMISSION: 03/17/18 DATE OF DISCHARGE: 03/19/18 PROVIDER: Laurita Lucero MD.* (DICTATED BY BEE GONZALEZ) ADMITTING DIAGNOSES: Severe end-stage osteoarthritis of the left knee. DISCHARGE DIAGNOSIS: Severe end-stage osteoarthritis of the left knee, status post left total knee arthroplasty. SECONDARY DIAGNOSES: High cholesterol, diabetes, sleep apnea, and melanoma. HISTORY OF PRESENT ILLNESS: Mr. Hatch is a 67-year-old gentleman who has end - stage arthritis of the left knee. He failed conservative management and elected to proceed with a left total knee arthroplasty. HOSPITAL COURSE: On 03/17/18, the patient was admitted to [facility] and underwent a successful left total knee arthroplasty by Dr. Lucero. He recovered briefly in the postanesthesia care unit and was transferred to the short-stay surgical unit in stable condition. He was then consulted on by the hospitalist service for co-management of his chronic medical conditions. On postop day 1, the patient's pain was controlled with oral pain medication. He was able to ambulate with the use of the rolling walker with Physical Therapy. H and H was stable at 12.5 and 37. He was given Lovenox for DVT prophylaxis. His Child catheter was removed and he was able to void without difficulty. On postop day 2, the patient's pain continued to be well controlled. He was able to ambulate easily with the rolling walker and he was found stable for discharge home. His H and H was 12.1 and 35. He again received Lovenox for DVT prophylaxis throughout the hospital course. The patient's vital signs remained stable and he remained afebrile. DISCHARGE DISPOSITION: Home. DISCHARGE CONDITION: Stable. DISCHARGE MEDICATIONS: The patient will use: 1. Percocet 5/325, one to two tabs p.o. q.4 to 6 hours p.r.n. pain. 2. Flexeril 10 mg p.o. t.i.d., p.r.n. spasm. 3. Eliquis 2.5 mg p.o. b.i.d. for 30 days for DVT prophylaxis. 4. Colace 100 mg p.o. b.i.d. p.r.n. constipation. He will resume his home medications of: 1. Meloxicam 15 mg p.o. at bedtime. 2. Lipitor 40 mg p.o. at bedtime. DISCHARGE INSTRUCTIONS: The patient is weightbearing as tolerated with the use of a rolling walker. He will have visiting nurse services for wound checks and home physical therapy. He will wash the wound with soap and water, apply dry dressing as needed. He has understanding not to submerge the incision in a bathtub, hot tub or swimming pool. He will call the office with any problems or concerns or go directly to the emergency room with any chest pain, shortness of breath, fever greater than 101.5, calf pain or swelling. BEE GONZALEZ [id number]/[facility] #: [id number] TODD
== END 2018-03-19 14:05 | disposition home or self-care (01) | DRG 470 ==
LOC: AA 10:03 → SSU 17:18
PROVIDERS: ADMIT Orthopaedic Surgery Adult Reconstructive Orthopaedic Surgery; ATTEND Orthopaedic Surgery Adult Reconstructive Orthopaedic Surgery
PROC: 0SRD0J9 Replacement of Left Knee Joint with Synthetic Substitute, Cemented, Open Approach (ICD-10-PCS; principal; 2018-03-17 13:00)
DX: M17.0 Bilateral primary osteoarthritis of knee (principal); E11.9 Type 2 diabetes mellitus without complications; M21.162 Varus deformity, not elsewhere classified, left knee; M25.462 Effusion, left knee; G47.33 Obstructive sleep apnea (adult) (pediatric); F41.9 Anxiety disorder, unspecified; F32.9 Major depressive disorder, single episode, unspecified; E66.9 Obesity, unspecified; G89.29 Other chronic pain; E78.00 Pure hypercholesterolemia, unspecified; M25.762 Osteophyte, left knee; G43.109 Migraine with aura, not intractable, without status migrainosus; R34 Anuria and oliguria; Z85.820 Personal history of malignant melanoma of skin; Z82.49 Family history of ischemic heart disease and other diseases of the circulatory system; Z82.3 Family history of stroke; Z80.0 Family history of malignant neoplasm of digestive organs; Z68.34 Body mass index [BMI] 34.0-34.9, adult; Z82.0 Family history of epilepsy and other diseases of the nervous system; Z83.49 Family history of other endocrine, nutritional and metabolic diseases; Z81.8 Family history of other mental and behavioral disorders; Z81.1 Family history of alcohol abuse and dependence
CPT/HCPCS: 36415; 80048; 82043; 82570; 85014; 85018; 85049; 85610; 88305; 88311; A9270-GY; G8978-GP-CJ; G8979-GP-CI; G8987-GO-CJ; G8988-GO-CJ; G8989-GO-CJ; J0690; J1100; J1650; J1885; J2250; J2405; J2704; J2795; J3010

== ENCOUNTER 2018-03-23 13:19 | Observation (INO) | payer MEDICARE, OTHER ==
--- OUTSIDE RECORDS SUMMARY | 2018-03-23 13:30 | XMS REPORT | Continuity of Care Document ---
:1950 External Reference #:[id number] Author Name Wilma Nielson Care Team Providers Name Role Phone Reza Eden MD Primary Care Physician Unavailable Payers Type Date Identification Numbers Payment Provider Subscriber Policy Number: [id number] Medicare Silvio Hatch PayID: [id number] [address] [place] [address] Policy Number: [id number] [facility] Silvio Nabil Hatch Group Number: [id number] [address] PayID: [id number] [place] [address] Expires: 2018 Policy Number: [id number] Medicare Silvio Hatch PayID: [id number] [address] [place] [address] Advance Directives Description No Information Available Problems Date Description Provider Status Onset: 03/06/2014 Obstructive sleep apnea of adult Cha Chappell DNP, RN, Active COMPLAINT EVALUATION SUPERVISOR-BC Onset: 09/27/2017 Body mass index 30+ - obesity Cha Chappell DNP, RN, Active COMPLAINT EVALUATION SUPERVISOR-BC Onset: 03/23/2018 Arthroplasty of knee Laurita Lucero M.D. Active Onset: 01/28/2018 Localized, primary osteoarthritis Laurita Lucero [...] exposure As a child Smoking Status Reviewed: 03/23/18 Secondhand smoke exposure As a child Exercise Type/Frequency Exercises regularly Allergies, Adverse Reactions, Alerts Description No Known Drug Allergies Medications Medication Date Status Form Strength Qnty SIG Indications Ordering Provider Percocet 03/19 Active Tablets 5-325mg 70tab take 1-2 tabs Z47.1 Laurita s by mouth q4-6 Nic, hours as M.D. needed pain patient has been taking this dose in hospital for post op pain Cyclobenzaprine 03/19 Active Tablets 10mg 30tab take 1 tab by Laurita s mouth 2-3 Nic, times a day M.D. as needed Eliquis 03/19 Active Tablets 2.5mg 60tab take 1 tablet Laurita s by mouth Nic, twice a day M.D. Colace 03/19 Active Capsules 100mg 30cap 1 tab by Laurita s mouth twice a Nic, day as needed M.D. for constipation Meloxicam 01/28 Active Tablets 15mg 30tab 1 by mouth M25.561 Laurita s every day Kylie Lucero Lipitor Active Tablets 40mg 90tab 1 by mouth at Unknown /0000 s bedtime Aspirin Ec Hx Tablets 81mg 100ta 1 by mouth Unknown /0000 DR tang every day - 03/06 Medications Administered in Office Medication Date Status Form Strength Qnty SIG Indications Ordering Provider Depomedrol Administered Injection Laurita 40MG 018 Kylie Lucero Immunizations Description No Information Available Vital Signs Date Vital Result Comment 03/23/2018 10:11am Height 67 inches 5'7" Weight 210.00 lb BP Systolic 126 mmHg BP Diastolic 72 mmHg Body Temperature 98.7 F O2 % BldC Oximetry 93 % BMI (Body Mass Index) 32.9 kg/m2 03/07/2018 11:38am Height 68 inches 5'8" Weight [...] O2 % BldC Oximetry 98 % Results Test Date Facility Test Result H/L Range Note CBC Auto Diff 03/07/2018 [facility] White Blood 5.9 10^3/uL N 3.5-10.[address] [place] [address] [phone] Red Blood Count 5.68 10^6/uL High 4.00-5.40 [...] Blood Cells % 0.1 Urinalysis Profile 03/07/2018 [facility] Urine Color Yellow [address] [place] [address] [phone] Urine Appearance Clear Urine Specific [place] 1.027 N 1.010-1.030 Urine pH 5.0 N 5-9 Urine Urobilinogen Negative Negative Urine Ketones Negative Negative Urine Protein Negative Negative Urine Leukocytes Negative Negative Urine Blood Negative Negative Urine Nitrite Negative Negative Urine Bilirubin Negative Negative Urine Glucose Negative Negative Inr/Protime 03/07/2018 [facility] Inr 0.98 N 0.77-1.02 [address] [place] [address] [phone] Laboratory test 03/07/2018 [facility] Partial 32.2 seconds N 26.0-36.3 2 finding [address] [facility] [place] [address] PTT [phone] Comp Metabolic 03/07/2018 [facility] Sodium 140 mmol/L N 135- 145 Panel [address] [place] [address] [phone] Potassium 4.3 mmol/L N 3.5-5.0 Chloride 108 [...] Egfr Non- 114.4 >60 Egfr 138.4 >60 3 Type & Screen 03/07/2018 [facility] Patient Blood Type A Positive [address] [place] [address] [phone] Antibody Screen NEGATIVE Urine Culture And 03/07/2018 [facility] Urine Culture SEE RESULT [address] [place] [address] [phone] 1 AA 03/17 2 AA 03/17 3 Because ethnic data is not always readily [...] 15-29 5 Kidney failure <15 (or dialysis) 4 SEE RESULT BELOW Name: SILVIO HATCH : [address]: Laurita Lucero MD Acct: [id number] Unit: [id number] AGE: 67 Location: [facility] Re03/07/18 SEX: M Status: REG REF SPEC: [id number] MARKEL: 03/07/18 [facility] DR: Laurita Lucero MD REQ: [id number] RECD: 03/07/18 STATUS: COMP OTHR DR: Reza Eden MD _ SOURCE: URINE SPDESC: ORDERED: Urine Culture COMMENTS: MARK 03/17 QUERIES: Urine Source: Clean Catch Procedure Result Reported Site Urine Culture Final 03/08/18- 1300 ML No Growth (<1,000 CFU/mL) * ML - Main Lab . END OF REPORT DEPARTMENT OF PATHOLOGY, [address] [place] [id number] Tito Gutiérrez M.D. Director [facility] # [id number] Procedures Date Code Description Status 03/17/2018 59362 TKR Total Knee Replacement Completed 03/17/2018 48446 TKR Total Knee Replacement Completed 01/28/2018 42296 Inject/Drain Joint/Bursa Major W/O US Completed Encounters [...] [facility] Chappell RN, apnea (adult) [facility] MAZIN-BC (pediatric) Z68.33 Body mass index (BMI) 33.0-33.9, adult Office Visit 06/04/2016 [facility] Rhys Cortes L72.3 Sebaceous cyst Of [facility] MD Sina, FACS L03.312 Cellulitis of back [any part except buttock] Office Visit 06/02/2016 [facility] G47.33 Obstructive sleep 2:45p [facility] Chappell RN, apnea (adult) [facility] COMPLAINT EVALUATION SUPERVISOR-BC (pediatric) Office Visit 05/17/2015 [facility] G47.33 Obstructive sleep 10:15a [facility] Chappell RN, apnea (adult) [facility] COMPLAINT EVALUATION SUPERVISOR-BC (pediatric) Office Visit 03/06/2014 [facility] 327.23 Obstructive Sleep 9:00a [facility] Chappell RN, Apnea Adult & [facility] COMPLAINT EVALUATION SUPERVISOR-BC Pediatric Plan of Treatment Future Appointment(s):03/30/2018 10:00 am - Florencia Booker PA-C at [facility]09/27/2018 11:15 am - Cha Chappell DNP, RN, COMPLAINT EVALUATION SUPERVISOR-BC at [facility]03/23/2018 - Laurita Lucero M.D.Z47.1 Aftercare following joint replacement hjrymyxH17.652 Presence of left artificial knee yszakU04.561 Pain in right kneeM25.462 Effusion, left kneeR06.00 Dyspnea, unspecifiedFollow up:Follow up: 1 week with florencia for suture removal
[2018-03-23] MEDS ORDERED: Heparin DRIP 25,000 UNITS(*) 25,000 UNITS/500 ML BAG IVPB ONE (13:33)
--- NOTE | 2018-03-23 13:35 | ED ---
HPI Cardiac - HPI Summary HPI Summary: Patient is a 67 y/o M presenting to ED with bilateral PE. He was at Dr. Lucero's office for a follow up appointment today after left knee replacement surgery. Dr. Lucero had noticed that the patient had SOB in the office, he had an outpatient CTA chest which showed bilateral PE, which prompted today's ED visit. Patient had surgery 03/17/18, he notes that he was placed on "low dose" Eliquis after the surgery. He notes that he has been feeling SOB for two days, denies pain but notes that exertion aggravates SOB. Patient reports no swelling except at surgery incision site. He states that he had a normal EKG before surgery on the . Fever, chills, erythema of eyes, sore throat, chest pain, cough, abdominal pain , N/V, dysuria, hematuria, myalgia, rash and dizziness are not reported. On triage, nothing is noted to aggravate/alleviate Sx. Home medications and allergies are reviewed. - History of Current Complaint Chief Complaint: EDShortnessOfBreath Stated Complaint: SOB Time Seen by Provider: 03/23/18 13:26 Hx Obtained From: Patient Onset/Duration: Started Days Ago - 2, Still Present Timing: Constant, Lasting Days - 2 Current Severity: None - no pain reported Pain Intensity: 0 Pain Scale Used: 0-10 Numeric - 0/10 Chest Pain Radiates: No Character: Exertion - SOB Aggravating Factor(s): Exertion Alleviating Factor(s): Nothing Associated Signs and Symptoms: Positive: Shortness of Breath, Swelling - at knee replacement incision site, Edema - at knee replacement incision site, Other : - no erythema of eyes, sore throat, dysuria, hematuria,. Negative: Chest Pain , Dizziness, Fever, Chills, Nausea, Cough, Abdominal Pain, Vomiting - Additional Pertinent History Primary Care Physician: [id number] - Allergy/Home Medications Allergies/Adverse Reactions: Allergies Allergy/AdvReac Type Severity Reaction Status Date / Time No Known Allergies Allergy Verified 03/17/18 10:41 Home Medications: Home Medications Atorvastatin* [Lipitor*] 40 mg PO BEDTIME 03/23/18 [History Confirmed 03/23/18] Meloxicam(NF) [Mobic(NF)] 15 mg PO QPM 03/23/18 [History Confirmed 03/23/18] PMH/Surg Hx/FS Hx/Imm Hx Endocrine/Hematology History: Reports: Hx Diabetes Cardiovascular History: Reports: Hx Hypercholesterolemia, Other Cardiovascular Problems/Disorders - high cholesterol Denies: Hx Hypertension Respiratory History: Reports: Hx Sleep Apnea - CPAP user Denies: Other Respiratory Problems/Disorders GI History: Denies: Other GI Disorders History: Denies: Hx Renal Disease Musculoskeletal History: Reports: Hx Arthritis - Knees Denies: Other Musculoskeletal History Sensory History: Reports: Hx Cataracts - sanjiv, Hx Contacts or Glasses Denies: Hx Hearing Aid Opthamlomology History: Reports: Hx Cataracts - sanjiv, Hx Contacts or Glasses Neurological History: Reports: Hx Migraine - rare Denies: Other Neuro Impairments/Disorders Psychiatric History: Reports: Hx Anxiety - no meds, Hx Depression - Surgical History Surgery Procedure, Year, and Place: Left Meniscus Surgery; Trigger Finger Surgery Hx Anesthesia Reactions: No Infectious Disease History: No Infectious Disease History: Denies: Traveled Outside the [place] in Last 30 Days - Family History Known Family History: Negative: Blood Disorder - no FMHx of blood clots - Social History Alcohol Use: Rare Alcohol Amount: 2 per month Substance Use Type: Reports: None Smoking Status (MU): Never Smoked Tobacco Review of Systems Negative: Fever, Chills Negative: Erythema Negative: Sore Throat Negative: Chest Pain Positive: Shortness Of Breath. Negative: Cough Negative: Abdominal Pain, Vomiting, Nausea Negative: dysuria, hematuria Positive: Edema - swelling at left knee surgery incision site . Negative: Myalgia Negative: Rash Neurological: Other - NEGATIVE - DIZZINESS All Other Systems Reviewed And Are Negative: Yes Physical Exam - Summary Physical Exam Summary: Constitutional: Well-developed, Well-nourished, Alert. (-) Distressed Skin: Warm, Dry HENT: Normocephalic; Atraumatic Eyes: Conjunctiva normal Neck: Musculoskeletal ROM normal neck. (-) JVD, (-) Stridor, (-) Tracheal deviation Cardio: Rhythm regular, rate normal, Heart sounds normal; Intact distal pulses; The pedal pulses are 2+ and symmetric. Radial pulses are 2+ and symmetric. (-) Murmur Pulmonary/Chest wall: Effort normal. (-) Respiratory distress, (-) Wheezes, (-) Rales Abd: Soft, (-) epigastric tenderness, (-) Distension, (-) Guarding, (-) Rebound Musculoskeletal: (+) LLE edema Lymph: (-) Cervical adenopathy Neuro: Alert, Oriented x3 Psych: Mood and affect Normal Triage Information Reviewed: Yes Vital Signs On Initial Exam: Initial Vitals Temp Pulse Resp BP Pulse Ox 99.0 F 93 20 146/82 98 03/23/18 13:25 03/23/18 13:25 03/23/18 13:25 03/23/18 13:25 03/23/18 13:25 Vital Signs Reviewed: Yes Diagnostics - Vital Signs Vital Signs Temp Pulse Resp BP Pulse Ox 03/23/18 13:25 99.0 F 93 20 146/82 98 - Laboratory Result Diagrams: 03/23/18 13:32 03/23/18 13:32 Lab Statement: Any lab studies that have been ordered have been reviewed, and results considered in the medical decision making process. - EKG 1400 Cardiac Rate: NL - rate of 84 BPM EKG Rhythm: Sinus Rhythm Summary of EKG Findings: EKG showed sinus rhythm with rate of 84 BPM, no STEMI. Disposition - Course Course Of Treatment: Patient is a 67 y/o M presenting to ED with bilateral PE. He was at Dr. Lucero's office for a follow up appointment today after left knee replacement surgery. Dr. Lucero had noticed that the patient had SOB in the office, he had an outpatient CTA chest which showed bilateral PE, which prompted today's ED visit. Patient had surgery 03/17/18, he notes that he was placed on "low dose" Eliquis after the surgery. He notes that he has been feeling SOB for two days, denies pain but notes that exertion aggravates SOB. Patient reports no swelling except at surgery incision site. He states that he had a normal EKG before surgery on the . On physical exam, LLE edema is noted. EKG showed sinus rhythm with rate of 84 BPM, no STEMI. Labs showed Hgb 13.1, Hct 38, RDW 16, glucose 126, lactic acid 1.2, total bilirubin 1.7, AST 47 , ALT 82, trop 0.06. During ED course, patient received Heparin drip. Patient' s case was discussed with Dr. Collins at 1353, Dr. Collins accepts for admission. - Diagnoses Provider Diagnoses: Bilateral pulmonary embolism - Physician Notifications Discussed Care Of Patient With: Zeenat Collins Time Discussed With Above Provider: 13:53 Instructed by Provider To: Other - Patient's case was discussed with Dr. Collins at 1353, Dr. Collins accepts for admission. - Critical Care Time Critical Care Time: 30-74 min - 45 MINUTES Discharge - Sign-Out/Discharge Documenting (check all that apply): Patient Departure - ADMIT - Discharge Plan Condition: Good Disposition: ADMITTED TO [facility] Referrals: Reza Eden MD [Primary Care Provider] - - Billing Disposition and Condition Condition: GOOD Disposition: Admitted to [facility] - Attestation Statements Document Initiated by Scribe: Yes Documenting Scribe: ERICA MCCABE Provider For Whom Scribe is Documenting (Include Credential): MADISON NGUYEN MD Scribe Attestation: ERICA Irwin, scribed for MADISON NGUYEN MD on 03/23/18 at 1552. Scribe Documentation Reviewed: Yes Provider Attestation: The documentation as recorded by the scribERICA cameron accurately reflects the service I personally performed and the decisions made by MADISON curry MD Status of Scribe Document: Viewed
[2018-03-23 13:43] LABS: ABS Basophils 0.1 10^3/ul (0-0.2); ABS Eosinophils 0.3 10^3/ul (0-0.6); ABS Lymphocytes 1.1 10^3/ul (1.0-4.8); ABS Monocytes 0.7 10^3/ul (0-0.8); ABS Neutrophils 5.6 10^3/ul (1.5-7.7); ABS Nucleated RBC 0 10^3/ul; Eosinophil % 3.6 %; Hematocrit 38 % (42-52); Hemoglobin 13.1 g/dl (14.0-18.0); Lymphocyte % 14.7 %; Mean Corpuscular HGB Conc 34 g/dl (31-36); Mean Corpuscular Hemoglobin 28 pg (27-31); Mean Corpuscular Volume 80 fL (80-94); Mean Platelet Volume 7.5 fL (7.4-10.4); Nucleated Red Blood Cells % 0.1; Platelet Count 197 10^3/ul (150-450); Red Blood Count 4.76 10^6/ul (4.00-5.40); Red Cell Distribution Width 16 % (10.5-15); White Blood Count 7.7 10^3/ul (3.5-10.8)
[2018-03-23 14:00] LABS: Albumin 3.8 g/dL (3.2-5.2); Albumin/Globulin Ratio 1.3 (1-3); BUN/Creatinine Ratio 19.7 (8-20); Calcium 9.3 mg/dL (8.6-10.3); EGFR Non-African American 110.7 (>60); Globulin 2.9 g/dL (2-4); Potassium 3.9 mmol/L (3.5-5.0); Total Bilirubin 1.7 mg/dL (0.2-1.0); Total Protein 6.7 g/dL (6.4-8.9)
--- NOTE | 2018-03-23 14:54 | PN ---
Hospitalist Progress Note Date of Service: 03/23/18 HOSPITALIST ADDENDUM Case reviewed and d/w Neva GAMBOA/ Cristina Ram NP. Mr Hatch is a 67yo M with PMH of obesity, DM, HLD, who underwent elective left TKA on 03/17/[address] Lucero. He presents now with dyspnea, found to have Pulmonary embolism, despite DVT prophylaxis with Apixaban. Patient will be admitted, started on Lovenox as per discussion with Dr Hassan. Check echocardiogram to assess RV function and LE doppler to document clot burden. Agree with current management.
[2018-03-23] MEDS ORDERED: oxyCODONE/Acetamin 5/325 MG* TAB PO PRN ×2 (14:55)
[2018-03-23] MEDS ORDERED: Cyclobenzaprine TAB* 10 MG PO PRN (14:55)
[2018-03-23] MEDS ORDERED: Bisacodyl SUPP* 10 MG SUPP PR PRN (15:00)
[2018-03-23] MEDS ORDERED: Acetaminophen TAB* 325 MG PO PRN (15:01)
[2018-03-23] MEDS ORDERED: Ondansetron ODT TAB* 4 MG SL PRN (15:02)
[2018-03-23] MEDS ORDERED: Dextrose 50% Syringe 50 ML* 25 GM/50 ML SYRINGE IV PUSH PRN (15:02)
[2018-03-23] MEDS: Insulin LISPRO* 1 UNITS UNIT SUBCUT SCH (17:05)
[2018-03-23] MEDS: Enoxaparin(*) 100 MG/ML SYR SUBCUT SCH (17:07)
--- NOTE | 2018-03-23 17:37 | HP ---
ADMISSION HISTORY AND PHYSICAL: DATE OF ADMISSION: 03/23/18 PRIMARY CARE PROVIDER: Unknown. ATTENDING PHYSICIAN: Dr. Marcy Murdock.* (DICTATED BY BEE PEREZ ) CHIEF COMPLAINT: Progressive shortness of breath x2 days. HISTORY OF PRESENT ILLNESS: Mr. Hatch is a 67-year-old man who presented to the ER today with progressive shortness of breath on exertion x2 days. The patient states that he would walk and once he sat down, he could not catch his breath. This became progressively worse. Today, he saw Dr. Lucero who performed a left total knee arthroplasty on the patient on 03/17/18. He was discharged on 03/19/18. Upon seeing Dr. Lucero, he related history of shortness of breath x2 days and she sent him for a CTA. The CTA revealed small filling defects noted in the segmental arteries of the left upper lobe, right upper lobe, and left lower lobe suspicious for pulmonary embolus. He was then sent to the ER department where he was given a heparin bolus and then started on heparin drip. The patient was sent home on Eliquis 2.5 when he was discharged on 03/19/18, which he reports to taking regularly. He also states he tried to keep his activity up and that he would ambulate every 1 to 2 hours for approximately 10 minutes. He is being admitted for pulmonary embolism. Discussed with Dr. Hassan the fact that the patient was on Eliquis 2.5 b.i.d. since 03/20/18 and still developed a DVT. He states that medication may not have had time to reach peak effect. There is no need for testing for hypercoagulable conditions unless the patient has a family history, which was not reported. Dr. Hassan recommends 3 months of Lovenox once the patient is discharged. Positive for shortness of breath with exertion, intermittent cough, left knee pain, constipation, decreased appetite, and increased blood sugar. The patient states that his highest blood sugar has been 168. He has diabetes, which is controlled with diet. The patient denies shortness of breath at rest, chest pain, palpitations, bloody cough, headache, blurry vision. PAST MEDICAL HISTORY: Hyperlipidemia, diabetes type 2, sleep apnea, melanoma. PAST SURGICAL HISTORY: Left total knee arthroplasty, right trigger thumb, left knee medial meniscus. HOME MEDICATIONS: 1. Percocet 5/325 one to two tablets p.o. q.4 to 6 hours p.r.n. pain. 2. Flexeril 10 mg p.o. t.i.d. p.r.n. spasm. 3. Eliquis 2.5 mg p.o. b.i.d. for 30 days for DVT prophylaxis. 4. Colace 100 mg p.o. t.i.d. p.r.n. constipation. 5. Meloxicam 15 mg p.o. at bedtime. 6. Lipitor 40 mg p.o. at bedtime. ALLERGIES: No known drug allergies. FAMILY HISTORY: Father of complications from colon cancer. The patient states father had a heart condition, although he is unsure what it was. Mother vascular dementia. SOCIAL HISTORY: He is a 67-year-old male who lives with his . He does not smoke. Does not drink. Does not use illicit drugs. REVIEW OF SYSTEMS: A 10-point review of systems was performed. Pertinent positives and negatives are above in the HPI. All other systems are negative. PHYSICAL EXAMINATION GENERAL: Mr. Hatch is a well-developed, obese male who is resting comfortably. VITAL SIGNS: 96% on room air, pulse is 84, respiratory rate is 20, blood pressure 146/82. HEENT: Visual cho grossly intact. Pupils equally round and reactive to light and accommodation. Extraocular movements intact. Sclerae without icterus. External auditory canal is patent, free of cerumen. Tympanic membranes intact. Nares patent. Mucous membranes moist. Tongue midline. NECK: No lymphadenopathy. No JVD. Supple. RESPIRATORY: Symmetrical chest expansion. No accessory muscle use. Lungs clear to auscultation bilaterally. No rhonchi, rubs, or wheezes. CARDIOVASCULAR: Regular rate and rhythm. S1/S2 present. No murmurs, rubs, clicks, or gallops. ABDOMEN: Firm, nontender to palpation. Bowel sounds hypoactive throughout. No hepatosplenomegaly. EXTREMITIES: Skin warm. No edema. No clubbing or cyanosis. Radial and pedal pulses 2+ bilaterally. Capillary refill less than 2 seconds. NEURO: Alert and oriented x3. Cranial nerves II through XII grossly intact. Moves all extremities. Motor strength is 5+ in bilateral upper extremities and in right leg, left leg is postop. SKIN: Grossly intact without lesions. Left knee incision without erythema, warmth, or tenderness. DIAGNOSTIC STUDIES/LAB DATA: WBC 7.7, RBC 4.76, Hgb 13.1, HCT 38, platelets 197, glucose 126. Troponin 0.06. CTA chest, impression: Small filling defects are noted in the segmental arteries of the left upper lobe, right upper lobe, and left lower lobe suspicious for pulmonary embolus. ASSESSMENT AND PLAN: Mr. Hatch is a 67-year-old male with a past medical history of left total knee arthroplasty, diabetes type 2, hyperlipidemia. He presents today for shortness of breath due to pulmonary embolus. The patient will be admitted observation status for pulmonary embolism. 1. Pulmonary embolism. Discontinue heparin drip. Start Lovenox 95 mg b.i.d. [address] Hassan recommended Lovenox x3mo once pt is discharged, so we will start that here. Continue O2 nasal cannula. Bilateral lower extremity Doppler ultrasound ordered. Transthoracic echo ordered. Due to elevated troponin of 0.06, we will trend; 2 more troponins have been ordered. 2. Diabetes mellitus type 2. Diabetes controlled with diet. The patient is placed on consistent carbohydrate diet. Sliding scale ordered for blood sugar greater than 150. 3. Constipation. Senna and docusate sodium ordered on a daily basis. MiraLAX and Dulcolax ordered on a p.r.n. basis. 4. Hyperlipidemia. Continue atorvastatin. 5. DVT prophylaxis. The patient is on Lovenox. 6. Code status. Full code. TIME SPENT: Approximately 60 minutes was spent on the admission, greater than half of that time was spent with the patient obtaining history, performing a physical, and reviewing the plan of care. This case has been reviewed with Dr. Murdock, who is in agreement with the plan of care. BEE PEREZ [id number]/[facility] #: [id number] TODD
[2018-03-23] MEDS: Polyethylene Glycol 3350* 17 GM PACKET PO PRN (20:23)
[2018-03-23] MEDS: Docusate CAP* 100 MG PO SCH (20:23)
[2018-03-23] MEDS ORDERED: Senna TAB PO SCH (21:00)
[2018-03-23] MEDS ORDERED: Atorvastatin* 40 MG TAB PO SCH (21:00)
[2018-03-24] MEDS: Enoxaparin(*) 100 MG/ML SYR SUBCUT SCH (05:44)
[2018-03-24] MEDS: Docusate CAP* 100 MG PO SCH (08:05)
[2018-03-24] MEDS: Insulin LISPRO* 1 UNITS UNIT SUBCUT SCH ×2 (08:05→11:32)
[2018-03-24] MEDS: Polyethylene Glycol 3350* 17 GM PACKET PO PRN (08:05)
--- NOTE | 2018-03-24 10:58 | PN ---
Subjective Date of Service: 03/24/18 Interval History: Pt is post-op LTKA who developed a PE and was admitted for observation overnight. He states that he feels worse than yesterday, as his sleep was interrupted multiple times last night for blood collection. He is still SOB with activity and sitting up. He states that he is no better or worse than yesterday and that it "takes a minute or two to catch my breath" after walking. He is concerned over his bowel movements, stating that he needed a suppository this morning to produce a BM and he does not feel that he has emptied his bowels completely. Pt denies CP, n/v, productive cough, lightheadedness. He would like to go home, as he has family coming and feels he will have help and better rest. Objective Active Medications: Acetaminophen (Tylenol Tab*) 650 mg PO Q6H PRN Atorvastatin Calcium (Lipitor*) 40 mg PO BEDTIME ADOLFO Bisacodyl (Dulcolax Supp*) 10 mg LA DAILY PRN Cyclobenzaprine HCl (Flexeril Tab*) 5 mg PO TID PRN Dextrose (D50w Syringe 50 Ml*) 12.5 gm IV PUSH .FOR FS < 60 - SS PRN Docusate Sodium (Colace Cap*) 100 mg PO BID ADOLFO Enoxaparin Sodium (Lovenox(*)) 95 mg SUBCUT Q12H ADOLFO Insulin Human Lispro (Humalog*) 0 units SUBCUT AC ADOLFO; Protocol Ondansetron HCl (Zofran Odt Tab*) 4 mg SL Q6H PRN Oxycodone/Acetaminophen (Percocet 5/325 Tab*) 1 tab PO Q4H PRN Oxycodone/Acetaminophen (Percocet 5/325 Tab*) 2 tab PO Q4H PRN Polyethylene Glycol/Electrolytes (Miralax*) 17 gm PO DAILY PRN Senna (Senokot Tab*) 1 tab PO BEDTIME [facility] Vital Signs - 8 hr 03/24/18 03/24/18 03:28 07:48 Temperature 97.7 F 98.6 F Pulse Rate 82 79 Respiratory 20 14 Rate Blood Pressure 128/73 125/70 (mmHg) O2 Sat by Pulse 95 96 Oximetry Oxygen Devices in Use Now: None Appearance: Pt is resting in bed; in no acute distress. Eyes: No Scleral Icterus Ears/Nose/Mouth/Throat: NL Teeth, Lips, Gums, Mucous Membranes Moist Neck: NL Appearance and Movements; NL JVP, Trachea Midline Respiratory: Symmetrical Chest Expansion and Respiratory Effort, Clear to Auscultation Cardiovascular: NL Sounds; No Murmurs; No JVD, RRR, No Edema Abdominal: NL Sounds; No Tenderness; No Distention, No Hepatosplenomegaly Extremities: No Edema, No Clubbing, Cyanosis Neurological: Alert and Oriented x 3 Result Diagrams: 03/23/18 13:32 03/23/18 13:32 Assess/Plan/Problems-Billing Assessment: Pt is 67yom with PE. He is stable and is on Lovenox for anticoagulation. - Patient Problems (1) Pulmonary embolism Code(s): I26.99 - OTHER PULMONARY EMBOLISM WITHOUT ACUTE COR PULMONALE SNOMED Code(s): 36714525 Comment: -BP stable; pt stable; Troponins were slightly elevated, but did not trend upward- elevation likely a result of PE -B/l LE doppler reveals no clot burden -Await echo and results to decide on discharge -Continue Lovenox (2) Diabetes mellitus type II, controlled, with no complications Code(s): E11.9 - TYPE 2 DIABETES MELLITUS WITHOUT COMPLICATIONS SNOMED Code(s) : 212071567 Comment: -Slight elevation in BS -Continue pt on sliding scale insulin -Continue consistent carbohydrate diet (3) S/P total knee arthroplasty Code(s): Z96.659 - PRESENCE OF UNSPECIFIED ARTIFICIAL KNEE JOINT SNOMED Code(s ): 9719246744127 Comment: -Instructions per ortho: -Continue pain rx prn -WBAT; shower as desired, but do not submerge wound -Cover incision with gauze and yola wrap -F/u Dr. Lucero 10-14d post-op (4) Hyperlipidemia Code(s): E78.5 - HYPERLIPIDEMIA, UNSPECIFIED SNOMED Code(s): 13094608 Comment: -Continue atorvastatin (5) Constipation Code(s): K59.00 - CONSTIPATION, UNSPECIFIED SNOMED Code(s): 37515271 Comment: -Continue bowel regimen as ordered (6) DVT prophylaxis Code(s): SEF3053 - SNOMED Code(s): 519647310 Comment: -Pt on lovenox (7) Full code status Code(s): Z78.9 - OTHER SPECIFIED HEALTH STATUS SNOMED Code(s): 465289219 Status and Disposition: Pt stable for d/c pending results of Echo. Plan for a.m. discharge.
--- NOTE | 2018-03-24 15:05 | ECHO ---
Patient: DESIREE WHITNEY [facility] Rec#: [id number] : 1950 Date: 03/24/2018 Age: 67y Height: 170 cm / 66.9 in Weight: 95.3 kg / 210.0 lbs Sex: M BSA: 2.06 Room#: 451 Admit Date#: 03/23/2018 Type: Inpatient Referring: Neva Barbosa Reading: Abran Pickett MD Food Service Cashier: Anni Hay RDCS CC: Reza Eden MD Transthoracic Echocardiogram Indication: Pulmonary embolism BP: 128/73 HR: 82 Rhythm: NSR Findings History: Obesity, DM, HLD, left TKA 03/17/18, JL with CPAP. Technical Comments: The study quality is fair. The study was technically limited due to the patient's inability to lay in the left lateral decubitus position. Completed at 1230. Left Ventricle: The left ventricular chamber size is normal. Mild concentric left ventricular hypertrophy is observed. Left ventricular systolic function is at the lower limits of normal. The estimated ejection fraction is 50-55%. Abnormal left ventricular diastolic function is observed. Abnormal left ventricular diastolic filling is observed, consistent with impaired relaxation. Left Atrium: The left atrial chamber size is normal. Right Ventricle: The right ventricle is moderately dilated. The right ventricular global systolic function is low normal. Right Atrium: The right atrium is mildly dilated. Aortic Valve: The aortic valve is trileaflet. The aortic valve leaflets are mildly thickened. There is trace to mild aortic regurgitation. There is no evidence of aortic stenosis. Mitral Valve: There is mitral annular calcification. The mitral valve leaflets are mildly thickened. There is mild mitral valve prolapse. There is a trace of mitral regurgitation. There is no evidence of mitral stenosis. Tricuspid Valve: The tricuspid valve leaflets are normal. There is trace tricuspid regurgitation. Unable to estimate the right ventricular systolic pressure. There is no tricuspid stenosis. Pulmonic Valve: The pulmonic valve appears normal. There is a trace pulmonic regurgitation. There is no pulmonic stenosis. Pericardium: There is no significant pericardial effusion. A pericardial fat pad is visualized. Aorta: There is mild dilatation of the ascending aorta. There is no dilatation of the aortic arch. There is mild dilatation of the aortic root. Pulmonary Artery: The main pulmonary artery appears normal. Venous: The venous system is not well visualized. The inferior vena cava appears normal in size. There is an approximate 50% respiratory change in the inferior vena cava dimension. Summary: There was not any prior study for comparison. Conclusions Mild concentric left ventricular hypertrophy is observed. The estimated ejection fraction is 50-55%. Abnormal left ventricular diastolic filling is observed, consistent with impaired relaxation. The right ventricle is moderately dilated. The right ventricular global systolic function is low normal. The right atrium is mildly dilated. The aortic valve leaflets are mildly thickened. There is trace to mild aortic regurgitation. There is mitral annular calcification. There is mild mitral valve prolapse. There is a trace of mitral regurgitation. There is trace tricuspid regurgitation. There is mild dilatation of the ascending aorta. There is mild dilatation of the aortic root. Measurements Name Value Normal Range RVIDd (AP) 2D 4.3 cm (0.9 - 2.6) RVDdMajor (2D) 5.4 cm (2.2 - 4.4) RAd ISD 4CH 5.5 cm (3.4 - 4.9) RA (A4C)W 4 cm (2.9 - 4.6) IVSd (2D) 1.2 cm (0.6 - 1) LVPWd (2D) 1.1 cm (0.6 - 1) LVIDd (2D) 4.7 cm (3.6 - 5.4) LVIDs (2D) 3.1 cm - LV FS (2D) 33 % (25 - 45) Aortic Annulus 2.5 cm (1.4 - 2.6) Ao root diameter (2D) 3.9 cm (2.1 - 3.5) Ascending Ao 4 cm (2.1 - 3.4) Aortic arch 2.6 cm (1.8 - 3.4) LA dimension (AP) 2D 3.2 cm (2.3 - 3.8) LAd ISD 4CH 5.1 cm (2.9 - 5.3) LA ISD 4CH W 4.7 cm (2.5 - 4.5) Name Value Normal Range LA ESV BP (A/L) index 25 ml/m2 - Name Value Normal Range MV E-wave Vmax 0.5 m/sec - MV deceleration time 243 msec - MV A-wave Vmax 0.6 m/sec - MV E:A ratio 0.9 ratio - LV septal e' Vmax 0.06 m/sec - LV lateral e' Vmax 0.08 m/sec - LV E:e' septal ratio 8.3 ratio - LV E:e' lateral ratio 6.3 ratio - Name Value Normal Range AV Vmax 1.2 m/sec - AV VTI 22.1 cm - AV peak gradient 5 mmHg - AV mean gradient 3 mmHg - LVOT Vmax 1.1 m/sec - LVOT VTI 20 cm - LVOT peak gradient 5 mmHg - LVOT mean gradient 3 mmHg - MARCY Vmax 0.8 m/sec - Name Value Normal Range IVC diameter 1.9 cm - Name Value Normal Range PV Vmax 0.9 m/sec - PV peak gradient 3 mmHg -
[2018-03-24 16:31] VITALS: BP 149/75
--- NOTE | 2018-03-25 03:05 | DS ---
DISCHARGE SUMMARY: DATE OF ADMISSION: 03/23/18 DATE OF DISCHARGE: 03/24/18 PRIMARY CARE PHYSICIAN: Reza Eden MD ATTENDING PHYSICIAN: Zeenat Collins DO * (DICTATED BY BEE PEREZ ) PRIMARY DIAGNOSIS: Pulmonary embolus. SECONDARY DIAGNOSES: 1. Postoperative left total knee arthroplasty. 2. Hyperlipidemia. 3. Diabetes mellitus type 2. 4. Sleep apnea. 5. Melanoma. STUDIES WHILE IN THE HOSPITAL: 1. CTA of the chest. Impression: Small filling defects are noted in the segmental arteries of the left upper lobe, right upper lobe, and left lower lobe , suspicious for pulmonary embolus. 2. Bilateral lower extremity venous Duplex scan. Impression: No right lower extremity deep vein thrombosis. No left lower extremity deep vein thrombosis. 3. Transthoracic echocardiogram. Conclusion: Mild concentric left ventricular hypertrophy is observed. The estimated ejection fraction is 50% to 55%. Abnormal left ventricular diastolic filling is observed consistent with impaired relaxation. Right ventricle is moderately dilated. Right ventricular global systolic function is low normal. The right atrium is mildly dilated. The aortic valve leaflets are mildly thickened. There is [id number] aortic regurgitation. There is mitral annular calcification. There is mild mitral valve prolapse. There is a trace of mitral regurgitation. There is trace tricuspid regurgitation. There is mild dilation of the ascending aorta. There is mild dilation of the aortic root. 4. Troponin 0.06, 0.06, 0.05. DISCHARGE MEDICATIONS: Home medications: 1. Atorvastatin 40 mg p.o. at bedtime. 2. Meloxicam 15 mg p.o. q.p.m. 3. Oxycodone/acetaminophen 5/325 mg 1 to 2 tabs p.o. q.4. hours p.r.n. 4. Cyclobenzaprine 5 mg p.o. t.i.d. p.r.n. 5. Docusate 100 mg p.o. b.i.d. New home medication: 1. Enoxaparin 100 mg/mL syringe 100 mg subcutaneously q.12 hours. HISTORY OF PRESENT ILLNESS/HOSPITAL COURSE: Mr. Hatch is a 67-year-old man who presented to the ER yesterday with progressive shortness of breath on exertion for 2 days. The patient was postop day 7 from left total knee arthroplasty. He saw Dr. Lucero that day and related his history of shortness of breath x2 days. He was then sent for a CTA which revealed small filling defects in the segmental arteries of the left upper lobe, right upper lobe, and left lower lobe, suspicious for pulmonary embolism. He was sent to the ER. He was given heparin bolus, started on heparin drip and then admitted to the hospital. Heme/Onc was consulted regarding the fact that the patient was on Eliquis 2.5mg bid upon discharge on 03/19/18 and still developed a pulmonary embolism. They stated that this was not considered a failure of Eliquis, as the patient was on DVT prophylactic dose of 2.5mg BID. Regardless, they suggested that the patient be started on Lovenox BID. Heparin drip was discontinued and an hour later, the patient was started on Lovenox. Today, the patient states that he is still short of breath with activity and sitting up, but he feels no better or worse than yesterday, stating that it takes a minute or 2 to catch his breath after walking. He states that he feels worse than yesterday as his sleep was fitful and he was woken multiple times throughout the night for blood collection. He is eager to go home where he can be with his family and have a better night sleep. The patient denies chest pain , nausea, vomiting, productive cough, or lightheadedness. Positive for shortness of breath and cough. Mr. Hatch is stable for discharge to home. PHYSICAL EXAMINATION: Vital signs are temperature 98.0, heart rate 109, respiratory rate 16, oxygen saturation 94%, blood pressure 149/75. DISCHARGE PLAN: Mr. Hatch will be discharged to home. ACTIVITY: As tolerated. DIET: Diabetic/ADA diet. MEDICATIONS: As above. Education: Lovenox discussed with the patient as was increased risk of bleeding. FOLLOWUP: Follow up with Dr. Laurita Lucero as scheduled per ortho. Follow up with Dr. Reza Eedn in 4 to 7 days. Please return to the ER or the nearest hospital if you experience any worsening of symptoms, shortness of breath, lightheadedness, dizziness, chest discomfort, high fevers, chills, night sweats , loss of consciousness, bleeding that does not stop or any other worrisome sign or symptom. This is a summarized report of Mr. Hatch's hospital course. For further details, please see the entire medical record. TIME SPENT: Approximately 40 minutes were spent on this discharge, greater than half of that time spent [id number] with the patient discussing discharge plans and instructions. BEE PEREZ [id number]/CPS #: [id number] TODD
== END 2018-03-24 16:49 | disposition home or self-care (01) ==
LOC: ED 13:19 → MEDTELE 14:41
PROVIDERS: ADMIT Internal Medicine; ATTEND Internal Medicine
DX: I26.99 Other pulmonary embolism without acute cor pulmonale (principal); E78.5 Hyperlipidemia, unspecified; E11.9 Type 2 diabetes mellitus without complications; Z96.652 Presence of left artificial knee joint; Z85.820 Personal history of malignant melanoma of skin; Z79.899 Other long term (current) drug therapy; G47.33 Obstructive sleep apnea (adult) (pediatric)
CPT/HCPCS: 36415; 80053; 83605; 84484; 85025; 85730; 93005; 93306; 93970; 96365; 96366; 96372; 99284; A9270-GY; G0378; J1650

== ENCOUNTER 2021-03-27 08:23 | Observation (INO) ==
[~2021-03-27 08:23] MED LIST changes: -Buffered Lidocaine 0.9% SYRIN* 5 ML/SYR SYRINGE INTRADERM ONE; +Buffered Lidocaine 1% SYRIN 1 ml INTRADERM ONE; +Dexamethasone IV 4 MG/ML VIAL 1 ml VIAL ONE; -Dexamethasone IV* 4 MG/ML 1 ML (4 MG) IV SLOW PU ONE; +DiMENhydriNATE IV 50 mg/ml 1 ml VIAL IV PUSH ONE; +DiMENhydriNATE IV 50 mg/ml 1 ml VIAL ONE; +EPHEDrine (Pressors) 50 MG/ML VIAL ONE; -Famotidine IV* 10 MG/ML 2 ML (20 mg) IV ONE; +HYDROcodone/ACETAMIN 5/325 mg TAB PO PRN; +Lactated Ringers 1000 ml BAG 1,000 ML IV SCH; +Lidocaine 2% PF 5 ML VIAL ONE; +Metoclopramide 5 MG/ML VIAL (10 mg) IV PRN; +Midazolam 2 mg/2 ml VIAL 1 mg/ml 2 ml VIAL (2 mg) ONE; +Naloxone 0.4 mg VIAL 0.4 mg/ml 1 ml VIAL IV PRN; +Ondansetron 4 mg VIAL 2 MG/ML 2 ml VIAL IV PRN; +Ondansetron 4 mg VIAL 2 MG/ML 2 ml VIAL ONE; +Propofol 10 MG/ML 20 ML BTL ONE; +Sterile Water for Inj 10 ML ONE; -Tranexamic Acid 1,000 MG in NS 0.9% 50 ML* (outpatient use) IV SCH; +ceFAZolin 2 GM PREMIX 2 GM/50 ML BAG ONE; +fentaNYL 100 mcg/2 ml 50 MCG/ML VIAL IV PRN; +fentaNYL 250 mcg/5 ml 50 MCG/ML 5 ml VIAL (250 MCG) ONE
[2021-03-27] MEDS ORDERED: ROPIVACAINE 5 MG/ML 30 ML BTL (0.5%) ONE (09:47)
[2021-03-27] MEDS ORDERED: Midazolam 2 mg/2 ml VIAL 1 mg/ml 2 ml VIAL (2 mg) ONE (09:59)
[2021-03-27] MEDS ORDERED: Dexamethasone IV 4 MG/ML VIAL 1 ml VIAL ONE (09:59)
[2021-03-27] MEDS ORDERED: fentaNYL 100 mcg/2 ml 50 MCG/ML VIAL ONE (09:59)
[2021-03-27] MEDS ORDERED: Bupivacaine 0.5% SDV PF 30ML VIAL ONE (10:01)
[2021-03-27] MEDS ORDERED: Propofol 10 MG/ML 20 ML BTL ONE (12:15)
[2021-03-27] MEDS ORDERED: EPHEDrine (Pressors) 50 MG/ML VIAL ONE (12:34)
[2021-03-27] MEDS ORDERED: Lactulose 30 ml UDC PO PRN (13:19)
[2021-03-27] MEDS ORDERED: Morphine 2 MG/ML SYRINGE IV PRN (13:19)
[2021-03-27] MEDS ORDERED: diPHENhydraMINE IV 50 MG/ML 1 ml VIAL (BENADRYL) IV PRN (13:19)
[2021-03-27] MEDS ORDERED: Ondansetron ODT 4 mg TAB 4 MG TAB PO PRN (13:19)
[2021-03-27] MEDS ORDERED: Magnesium Hydroxide LIQ 30 ML UDC PO PRN (13:19)
[2021-03-27] MEDS ORDERED: diPHENhydraMINE 25 mg TAB PO PRN (13:19)
[2021-03-27] MEDS ORDERED: Ondansetron 4 mg VIAL 2 MG/ML 2 ml VIAL IV PRN (13:19)
[2021-03-27] MEDS: Lactated Ringers 1000 ml BAG 1,000 ML IV SCH (14:41)
[2021-03-27] MEDS: ceFAZolin 1 GM ADVAN 1 GM in NS 0.9% 50 ML 50 ML IVPB SCH (18:10)
[2021-03-27] MEDS: Magnesium Hydroxide LIQ 30 ML UDC PO SCH (22:10)
[2021-03-28] MEDS: Lactated Ringers 1000 ml BAG 1,000 ML IV SCH (01:09)
[2021-03-28] MEDS: ceFAZolin 1 GM ADVAN 1 GM in NS 0.9% 50 ML 50 ML IVPB SCH ×2 (02:19→10:34)
[2021-03-28 06:09] LABS: Hematocrit 35 % (42-52); Hemoglobin 11.8 g/dL (14.0-18.0); Platelet Count 196 10^3/uL (150-450)
[2021-03-28 06:24] LABS: Calcium 8.7 mg/dL (8.6-10.3); Potassium 4.1 mmol/L (3.5-5.0); eGFR CKD-EPI 101.7 (>60)
[2021-03-28 08:11] VITALS: BP 117/67
[2021-03-28] MEDS: Magnesium Hydroxide LIQ 30 ML UDC PO SCH (08:57)
[2021-03-28] MEDS ORDERED: Vitamin THERAPEUTIC TAB PO SCH (09:00)
== END 2021-03-28 11:30 | disposition home or self-care (01) ==
LOC: SSU 08:23 → OR 08:23
PROVIDERS: ADMIT Orthopaedic Surgery Adult Reconstructive Orthopaedic Surgery; ATTEND Orthopaedic Surgery Adult Reconstructive Orthopaedic Surgery